=== PATIENT | male | born 1965 | race Caucasian/White ===

== ENCOUNTER 2021-08-01 18:21 | Emergency (ER) | payer MEDICAID ==
[~2021-08-01] VITALS: Ht 180.3 cm; Wt 65.9 kg
[2021-08-01 19:01] VITALS: BP 192/95
[2021-08-01] MEDS ORDERED: naproxen 500mg tablet PO ONE (20:55)
== END 2021-08-01 22:43 | disposition home or self-care (01) ==
LOC: ER 18:22
DX: S92.001A Unspecified fracture of right calcaneus, initial encounter for closed fracture (principal); I25.10 Atherosclerotic heart disease of native coronary artery without angina pectoris; I10 Essential (primary) hypertension; M19.90 Unspecified osteoarthritis, unspecified site; Z72.89 Other problems related to lifestyle; Z91.81 History of falling; Y30.XXXA Falling, jumping or pushed from a high place, undetermined intent, initial encounter; Y93.89 Activity, other specified; Y92.89 Other specified places as the place of occurrence of the external cause; Y99.8 Other external cause status
CPT/HCPCS: 29505; 29515; 73610; 73630; 73700; 99284

== ENCOUNTER 2021-12-01 15:14 | Emergency (ER) | payer MEDICAID ==
[~2021-12-01] VITALS: Ht 180.3 cm; Wt 65.0 kg
[2021-12-01 15:18] VITALS: BP 179/75
[2021-12-01] MEDS ORDERED: ketorolac trometh. 30mg/ml inj. IM ONE (16:30)
--- NOTE | 2021-12-01 18:17 | NUR ---
[facility] CALLED FOR PT.
--- NOTE | 2021-12-01 18:17 | NUR ---
PT PUT IN WALKING BOOT AND EDUCATED ON USE OF CRUTCHES.
== END 2021-12-01 18:18 | disposition home or self-care (01) ==
LOC: ER 15:15
DX: M79.671 Pain in right foot (principal); I11.9 Hypertensive heart disease without heart failure; Z87.81 Personal history of (healed) traumatic fracture; Z79.899 Other long term (current) drug therapy
CPT/HCPCS: 73610; 73630; 96372; 99284; J1885

== ENCOUNTER 2023-11-29 13:45 | Inpatient (IN) | payer MEDICAID ==
[~2023-11-29] VITALS: Ht 180.3 cm; Wt 68.8 kg
[2023-11-29 15:23] LABS: EOSINOPHILS # (AUTO) 0.3 X10'3 (0-0.9); LYMPHOCYTES # (AUTO) 1.9 X10'3 (1.1-4.8); MEAN PLATELET VOLUME 8.1 FL (7.4-10.4); MONOCYTES # (AUTO) 0.7 X10'3 (0-0.9); NEUTROPHILS % (AUTO) 60.2 % (42-75)
[2023-11-29 15:25] LABS: BASOPHILS % (AUTO) 0.5 % (0-1); EOSINOPHILS % (AUTO) 4.4 % (0-6); HEMATOCRIT 41.7 % (42.0-52.0); HEMOGLOBIN 14.2 g/dl (14.0-17.9); LYMPHOCYTES % (AUTO) 25.4 % (21-51); MEAN CORPUSCULAR HEMOGLOBIN 29.6 PG (27.0-31.0); MEAN CORPUSCULAR VOLUME 87.1 FL (78-98); MONOCYTES % (AUTO) 9.5 % (2-12); NEUTROPHILS # (AUTO) 4.6 X10'3 (1.8-7.7); PLATELET COUNT 253 X10'3 (140-440); RED BLOOD COUNT 4.78 X10'6 (4.70-6.10); RED CELL DISTRIBUTION WIDTH 17.9 % (11.5-14.5); WHITE BLOOD COUNT 7.7 X10'3 (4.5-11.0)
[2023-11-29] MEDS: predniSONE 20 mg tablet PO ONE (15:29)
[2023-11-29 15:36] LABS: ALANINE AMINOTRANSFERASE 15 U/L (12-78); ALBUMIN 3.2 G/DL (3.4-5.0); ALBUMIN/GLOBULIN RATIO 0.8 (1.1-1.5); ALKALINE PHOSPHATASE 91 IU/L (46-116); ANION GAP 5 (8-16); ASPARTATE AMINO TRANSFERASE 20 U/L (10-37); BILIRUBIN,TOTAL 0.3 MG/DL (0.1-1.0); BLOOD UREA NITROGEN 17 MG/DL (7-18); BUN/CREATININE RATIO 12.1 (10.0-20.0); CALCIUM 8.7 MG/DL (8.5-10.1); CHLORIDE 104 MMOL/L (99-107); CREATININE 1.41 MG/DL (0.60-1.10); GLUCOSE 77 MG/DL (70-104); POTASSIUM 3.5 MMOL/L (3.5-5.1); SODIUM 139 MMOL/L (135-145); TOTAL CARBON DIOXIDE 29.7 MMOL/L (24-32); eCRCL 53 ML/MIN; eGFR 52 ML/MIN
[2023-11-29] MEDS: heparin 10,000 units/1 ML INJ IV ONE ×2 (16:10→17:43)
[2023-11-29] MEDS ORDERED: magnesium sulf-water 4G/100mL 100 ML IV PRN (16:20)
[2023-11-29] MEDS ORDERED: potassium Cl 40MEQ/1/2NS 520ml 520 ML IV PRN (16:20)
[2023-11-29] MEDS ORDERED: magnesium sulf-water 2g/50mL 50 ML IV PRN (16:20)
[2023-11-29] MEDS ORDERED: ondansetron/PF 4mg/2ml inj IV PRN (16:20)
[2023-11-29] MEDS ORDERED: heparin 25,000 UNIT/250ml bag 250 ML IV PRN (16:20)
[2023-11-29] MEDS ORDERED: potassium Cl 20 mEq SR tablet PO PRN ×2 (16:20)
[2023-11-29] MEDS ORDERED: magnesium Cl slow-release 64mg tablet PO PRN (16:20)
[2023-11-29] MEDS ORDERED: acetaminophen 325mg tablet PO PRN ×2 (16:20)
[2023-11-29] MEDS: MESSAGE TO NURSING IV ONE (16:25)
[2023-11-29 16:46] LABS: EOSINOPHILS # (AUTO) 0.3 X10'3 (0-0.9); HEMOGLOBIN 13.8 g/dl (14.0-17.9); LYMPHOCYTES # (AUTO) 2.1 X10'3 (1.1-4.8); MONOCYTES # (AUTO) 0.7 X10'3 (0-0.9); NEUTROPHILS # (AUTO) 4.7 X10'3 (1.8-7.7); NEUTROPHILS % (AUTO) 60.2 % (42-75); RED CELL DISTRIBUTION WIDTH 17.9 % (11.5-14.5); WHITE BLOOD COUNT 7.8 X10'3 (4.5-11.0)
[2023-11-29 16:47] LABS: BASOPHILS % (AUTO) 0.3 % (0-1); EOSINOPHILS % (AUTO) 3.9 % (0-6); HEMATOCRIT 41.4 % (42.0-52.0); LYMPHOCYTES % (AUTO) 26.6 % (21-51); MEAN CORPUSCULAR HGB CONC 33.4 g/dL (33.0-36.5); MEAN CORPUSCULAR VOLUME 86.9 FL (78-98); PLATELET COUNT 259 X10'3 (140-440); RED BLOOD COUNT 4.77 X10'6 (4.70-6.10)
[2023-11-29 16:59] LABS: APTT 27 SECONDS (22-32); PROTHROMBIN TIME 10.7 SECONDS (9.0-12.0)
[2023-11-29] MEDS: normal saline 1000ml 1,000 ML IV SCH (17:39)
[2023-11-29] MEDS: heparin 25,000 UNIT/250ml bag 250 ML IV PRN (17:44)
[2023-11-29] MEDS: nicotine 14mg patch - 24hr TD SCH (19:34)
[2023-11-29] MEDS: triamcinolone acetonide 0.1% ointment 15gm TP SCH (20:17)
[2023-11-29 21:10] VITALS: BP 153/64; PULSE 56; RESP 16; TEMP 98.1; O2SAT 96
[2023-11-30] VITALS (17 sets, daily range): BP systolic 117–177; BP diastolic 51–117; PULSE 53–75; RESP 14–19; TEMP 96.8–98.2; O2SAT 97–99
[2023-11-30 00:36] LABS: URINE AMPHETAMINE SCREEN NEGATIVE (Neg); URINE BARBITUATE SCREEN NEGATIVE (Neg); URINE BENZODIAZEPINES SCREEN NEGATIVE (Neg); URINE CANNABINOID SCREEN NEGATIVE (Neg); URINE COCAINE SCREEN NEGATIVE (Neg); URINE METHADONE SCREEN NEGATIVE (Neg); URINE OPIATE SCREEN NEGATIVE (Neg); URINE PHENCYCLIDINE SCREEN NEGATIVE (Neg)
[2023-11-30] MEDS: heparin 25,000 UNIT/250ml bag 250 ML IV PRN (01:02)
[2023-11-30] MEDS: heparin 10,000 units/1 ML INJ IV PRN (01:03)
[2023-11-30] MEDS: MESSAGE TO NURSING IV ONE ×2 (01:33→07:16)
[2023-11-30 06:28] LABS: BASOPHILS % (AUTO) 0.3 % (0-1); HEMOGLOBIN 13.2 g/dl (14.0-17.9); MONOCYTES # (AUTO) 0.4 X10'3 (0-0.9); NEUTROPHILS % (AUTO) 61.2 % (42-75)
[2023-11-30 06:30] LABS: EOSINOPHILS % (AUTO) 0.7 % (0-6); HEMATOCRIT 40.2 % (42.0-52.0); LYMPHOCYTES % (AUTO) 30.8 % (21-51); MEAN CORPUSCULAR HEMOGLOBIN 28.3 PG (27.0-31.0); MEAN CORPUSCULAR HGB CONC 32.8 g/dL (33.0-36.5); MEAN CORPUSCULAR VOLUME 86.3 FL (78-98); MEAN PLATELET VOLUME 8.3 FL (7.4-10.4); NEUTROPHILS # (AUTO) 3.9 X10'3 (1.8-7.7); PLATELET COUNT 232 X10'3 (140-440); RED BLOOD COUNT 4.66 X10'6 (4.70-6.10); RED CELL DISTRIBUTION WIDTH 17.4 % (11.5-14.5); WHITE BLOOD COUNT 6.4 X10'3 (4.5-11.0)
[2023-11-30 06:39] LABS: ALANINE AMINOTRANSFERASE 17 U/L (12-78); ALBUMIN 2.6 G/DL (3.4-5.0); ALBUMIN/GLOBULIN RATIO 0.8 (1.1-1.5); ALKALINE PHOSPHATASE 78 IU/L (46-116); ANION GAP 8 (8-16); ASPARTATE AMINO TRANSFERASE 10 U/L (10-37); BILIRUBIN,TOTAL 0.3 MG/DL (0.1-1.0); BLOOD UREA NITROGEN 18 MG/DL (7-18); BUN/CREATININE RATIO 19.6 (10.0-20.0); CALCIUM 8.3 MG/DL (8.5-10.1); CHLORIDE 105 MMOL/L (99-107); CREATININE 0.92 MG/DL (0.60-1.10); GLUCOSE 94 MG/DL (70-104); POTASSIUM 3.8 MMOL/L (3.5-5.1); SODIUM 137 MMOL/L (135-145); TOTAL CARBON DIOXIDE 24.2 MMOL/L (24-32); eCRCL 80 ML/MIN; eGFR 84 ML/MIN
[2023-11-30] MEDS ORDERED: pneumococcal 23-VAL P-sac vacc 25 mcg/0.5ml vial IMVAC ONE (10:00)
[2023-11-30] MEDS: amLODIPine 5mg tablet PO ONE (11:00)
[2023-11-30] MEDS: lisinopril 10 MG tablet PO ONE (12:07)
[2023-11-30] MEDS ORDERED: iohexol 350MG/ML 100ml bottle IV ONE (16:41)
[2023-11-30] MEDS ORDERED: heparin 1,000unit/ml 10ml vial 10 ML ONE (16:41)
[2023-11-30] MEDS ORDERED: LIDOcaine 1% (10mg/ml) 2ml vial ONE (16:41)
[2023-11-30] MEDS ORDERED: verapamil 2.5 mg/ml inj IV ONE (16:41)
[2023-11-30] MEDS ORDERED: nitroGLYCERIN 500mcg/5mL D5W 5 ML IV ONE (16:42)
[2023-11-30] MEDS ORDERED: fentaNYL/PF 50MCG/1 ML 2ML syringe ONE (17:22)
[2023-11-30] MEDS ORDERED: midazolam 1 mg/ML 2ml injection ONE (17:22)
[2023-11-30] MEDS ORDERED: iohexol 350 MG/ML 50ML vial IV ONE (17:36)
[2023-11-30] MEDS ORDERED: ondansetron/PF 4mg/2ml inj IV PRN (18:25)
[2023-11-30] MEDS ORDERED: proCHLORperazine 10 MG/2 ml inj IV PRN (18:25)
[2023-11-30] MEDS ORDERED: HYDROcodone/acetaminophen 10/325mg tab PO PRN (18:25)
[2023-11-30] MEDS: aspirin 81mg tab.chew PO ONE (19:55)
[2023-11-30] MEDS: HYDROcodone/acetaminophen 5mg/325mg tablet PO PRN (19:56)
[2023-12-01] VITALS (13 sets, daily range): BP systolic 136–185; BP diastolic 49–154; PULSE 51–62; RESP 13–22; TEMP 97.2–98.7; O2SAT 96–99
[2023-12-01] MEDS: hydrALAZINE 20mg/ml inj. IV SCH (02:19)
[2023-12-01 06:37] LABS: BASOPHILS % (AUTO) 0.6 % (0-1); EOSINOPHILS # (AUTO) 0.2 X10'3 (0-0.9); EOSINOPHILS % (AUTO) 3.2 % (0-6); HEMOGLOBIN 13.2 g/dl (14.0-17.9); LYMPHOCYTES # (AUTO) 2.2 X10'3 (1.1-4.8); LYMPHOCYTES % (AUTO) 29.7 % (21-51); MEAN CORPUSCULAR HEMOGLOBIN 28.3 PG (27.0-31.0); MEAN CORPUSCULAR HGB CONC 32.9 g/dL (33.0-36.5); MEAN PLATELET VOLUME 8.6 FL (7.4-10.4); MONOCYTES # (AUTO) 0.6 X10'3 (0-0.9); MONOCYTES % (AUTO) 7.9 % (2-12); NEUTROPHILS # (AUTO) 4.3 X10'3 (1.8-7.7); NEUTROPHILS % (AUTO) 58.6 % (42-75); PLATELET COUNT 220 X10'3 (140-440); RED BLOOD COUNT 4.65 X10'6 (4.70-6.10); RED CELL DISTRIBUTION WIDTH 17.6 % (11.5-14.5); WHITE BLOOD COUNT 7.4 X10'3 (4.5-11.0)
[2023-12-01 06:47] LABS: ALANINE AMINOTRANSFERASE 14 U/L (12-78); ALBUMIN 2.8 G/DL (3.4-5.0); ALBUMIN/GLOBULIN RATIO 0.8 (1.1-1.5); ALKALINE PHOSPHATASE 74 IU/L (46-116); ANION GAP 7 (8-16); ASPARTATE AMINO TRANSFERASE 19 U/L (10-37); BILIRUBIN,TOTAL 0.4 MG/DL (0.1-1.0); BLOOD UREA NITROGEN 18 MG/DL (7-18); BUN/CREATININE RATIO 19.6 (10.0-20.0); CALCIUM 8.5 MG/DL (8.5-10.1); CHLORIDE 104 MMOL/L (99-107); CREATININE 0.92 MG/DL (0.60-1.10); GLUCOSE 75 MG/DL (70-104); SODIUM 136 MMOL/L (135-145); TOTAL CARBON DIOXIDE 25.3 MMOL/L (24-32); TOTAL PROTEIN 6.5 G/DL (6.4-8.2); eCRCL 80 ML/MIN; eGFR 84 ML/MIN
[2023-12-01] MEDS: lisinopril 10 MG tablet PO SCH (12:13)
[2023-12-01] MEDS: metoprolol succinate 25mg (24-HOUR) SR. Tablet PO SCH (13:16)
[2023-12-01] MEDS: pneumococcal 23-VAL P-sac vacc 25 mcg/0.5ml vial IMVAC ONE (15:20)
[2023-12-01] MEDS ORDERED: ACET-2778 PO (18:10)
[2023-12-01] MEDS ORDERED: LISI10TA27 PO (18:10)
[2023-12-01] MEDS ORDERED: METO-384 PO (18:10)
[2023-12-01] MEDS ORDERED: HYDR25TA5 PO (18:10)
[2023-12-01] MEDS ORDERED: MELO-100 PO (18:10)
[2023-12-01] MEDS ORDERED: AMIT10TA6 PO (18:10)
[2023-12-01] MEDS: enoxaparin 40mg/0.4ml syringe SUBCUT SCH (21:06)
[2023-12-01] MEDS: OXAZEpam 15mg capsule PO PRN (21:17)
[2023-12-02] VITALS (12 sets, daily range): BP systolic 155–172; BP diastolic 59–69; PULSE 47–54; RESP 15–23; TEMP 97.3–97.6; O2SAT 95–98
[2023-12-02 07:10] LABS: ALANINE AMINOTRANSFERASE 13 U/L (12-78); ALBUMIN 2.7 G/DL (3.4-5.0); ALBUMIN/GLOBULIN RATIO 0.8 (1.1-1.5); ALKALINE PHOSPHATASE 72 IU/L (46-116); ANION GAP 5 (8-16); ASPARTATE AMINO TRANSFERASE 18 U/L (10-37); BILIRUBIN,TOTAL 0.4 MG/DL (0.1-1.0); BLOOD UREA NITROGEN 19 MG/DL (7-18); BUN/CREATININE RATIO 18.3 (10.0-20.0); CALCIUM 8.5 MG/DL (8.5-10.1); CHLORIDE 107 MMOL/L (99-107); CREATININE 1.04 MG/DL (0.60-1.10); GLUCOSE 74 MG/DL (70-104); POTASSIUM 4.2 MMOL/L (3.5-5.1); SODIUM 138 MMOL/L (135-145); TOTAL CARBON DIOXIDE 25.8 MMOL/L (24-32); TOTAL PROTEIN 6.2 G/DL (6.4-8.2); eCRCL 71 ML/MIN; eGFR 73 ML/MIN
[2023-12-02 07:22] LABS: EOSINOPHILS # (AUTO) 0.3 X10'3 (0-0.9); HEMOGLOBIN 13.2 g/dl (14.0-17.9); LYMPHOCYTES # (AUTO) 2.1 X10'3 (1.1-4.8); NEUTROPHILS # (AUTO) 4.4 X10'3 (1.8-7.7); RED CELL DISTRIBUTION WIDTH 17.8 % (11.5-14.5); WHITE BLOOD COUNT 7.5 X10'3 (4.5-11.0)
[2023-12-02 07:24] LABS: BASOPHILS % (AUTO) 0.6 % (0-1); EOSINOPHILS % (AUTO) 3.6 % (0-6); LYMPHOCYTES % (AUTO) 28.8 % (21-51); MEAN CORPUSCULAR HEMOGLOBIN 28.6 PG (27.0-31.0); MEAN CORPUSCULAR HGB CONC 32.9 g/dL (33.0-36.5); MEAN CORPUSCULAR VOLUME 86.9 FL (78-98); MEAN PLATELET VOLUME 8.6 FL (7.4-10.4); MONOCYTES # (AUTO) 0.6 X10'3 (0-0.9); MONOCYTES % (AUTO) 8.6 % (2-12); NEUTROPHILS % (AUTO) 58.4 % (42-75); PLATELET COUNT 217 X10'3 (140-440)
[2023-12-02 07:32] LABS: ANISOCYTOSIS 1+; LARGE PLATELETS FEW; PLATELET ESTIMATE NORMAL
[2023-12-02] MEDS: hydrALAZINE 20mg/ml inj. IV PRN (11:09)
[2023-12-02] MEDS: lisinopril 10 MG tablet PO ONE (12:21)
[2023-12-02] MEDS: MESSAGE TO PHARMACY IJ ONE (14:21)
[2023-12-02] MEDS: MESSAGE TO NURSING PO ONE ×4 (14:21→14:22)
[2023-12-02 14:24] LABS: APTT 30 SECONDS (22-32); PROTHROMBIN TIME 10.8 SECONDS (9.0-12.0)
[2023-12-02 16:03] LABS: ABG BASE EXCESS 1.4 mmol/L (-2.0-3.0); ABG HCO3 23.8 mmol/L (21.0-28.0); ABG OXYGEN SATURATION 97.2 % (94.0-98.0); ABG PCO2 (T) 31.2 mmHg (35.0-48.0); ABG PO2 (T) 83.1 mmHg (83.0-108.0); ALLEN'S TEST POSITIVE; FCOHb 0.9 % (0.5-1.5); FHHb 2.8 % (0.0-5.0); FMetHb 0.3 % (0.0-1.5); TOTAL HEMOGLOBIN 14.1 G/dl (13.5-17.5)
[2023-12-03] VITALS (9 sets, daily range): BP systolic 116–166; BP diastolic 47–65; PULSE 49–54; RESP 14–19; TEMP 97–98.5; O2SAT 94–98
[2023-12-03 04:42] LABS: BILIRUBIN,URINE NEGATIVE (Neg); CLARITY,URINE CLEAR (Clear); COLOR,URINE STRAW (Yellow); GLUCOSE, URINE NEGATIVE (Neg); KETONES,URINE NEGATIVE (Neg); LEUKOCYTE ESTERASE ,URINE NEGATIVE (Neg); NITRITES, URINE NEGATIVE (Neg); OCCULT BLOOD,URINE NEGATIVE (Neg); PH,URINE 6.5 (4.8-8.0); PROTEIN,URINE NEGATIVE (Neg); UROBILINOGEN,URINE 0.2 E.U/dL (0.2-1.0)
[2023-12-03 04:46] LABS: UA COLLECTION TYPE CLN CATCH MIDSTREAM
[2023-12-03 06:37] LABS: BASOPHILS % (AUTO) 0.6 % (0-1); LYMPHOCYTES # (AUTO) 2.2 X10'3 (1.1-4.8); MONOCYTES # (AUTO) 0.8 X10'3 (0-0.9); PLATELET COUNT 209 X10'3 (140-440); RED BLOOD COUNT 4.44 X10'6 (4.70-6.10)
[2023-12-03 06:40] LABS: EOSINOPHILS # (AUTO) 0.2 X10'3 (0-0.9); EOSINOPHILS % (AUTO) 3.4 % (0-6); HEMATOCRIT 38.5 % (42.0-52.0); HEMOGLOBIN 12.8 g/dl (14.0-17.9); LYMPHOCYTES % (AUTO) 31.9 % (21-51); MEAN CORPUSCULAR HEMOGLOBIN 28.9 PG (27.0-31.0); MEAN CORPUSCULAR HGB CONC 33.3 g/dL (33.0-36.5); MEAN CORPUSCULAR VOLUME 86.8 FL (78-98); MEAN PLATELET VOLUME 8.6 FL (7.4-10.4); MONOCYTES % (AUTO) 11.5 % (2-12); NEUTROPHILS # (AUTO) 3.7 X10'3 (1.8-7.7); NEUTROPHILS % (AUTO) 52.6 % (42-75); RED CELL DISTRIBUTION WIDTH 17.2 % (11.5-14.5)
[2023-12-03 06:55] LABS: ALANINE AMINOTRANSFERASE 21 U/L (12-78); ALBUMIN 2.8 G/DL (3.4-5.0); ALBUMIN/GLOBULIN RATIO 0.8 (1.1-1.5); ALKALINE PHOSPHATASE 73 IU/L (46-116); ANION GAP 6 (8-16); ASPARTATE AMINO TRANSFERASE 26 U/L (10-37); BILIRUBIN,TOTAL 0.3 MG/DL (0.1-1.0); BLOOD UREA NITROGEN 19 MG/DL (7-18); CALCIUM 8.7 MG/DL (8.5-10.1); CHLORIDE 107 MMOL/L (99-107); GLUCOSE 79 MG/DL (70-104); POTASSIUM 4.2 MMOL/L (3.5-5.1); SODIUM 139 MMOL/L (135-145); TOTAL CARBON DIOXIDE 25.9 MMOL/L (24-32); TOTAL PROTEIN 6.4 G/DL (6.4-8.2); eCRCL 74 ML/MIN; eGFR 77 ML/MIN
[2023-12-03 07:45] LABS: ANISOCYTOSIS 1+; LARGE PLATELETS MODERATE; PLATELET ESTIMATE NORMAL
[2023-12-03] MEDS: gabapentin 400mg capsule PO ONE (08:56)
[2023-12-03] MEDS: amLODIPine 5mg tablet PO SCH (08:57)
[2023-12-03] MEDS: lisinopril 10 MG tablet PO SCH (08:57)
[2023-12-03] MEDS: MESSAGE TO NURSING PO ONE (10:07)
[2023-12-03] MEDS: ringers solution, lacted 1,000 ML IV ONE (17:30)
[2023-12-03] MEDS: mupirocin 2% nasal ointment 1gm UD NS SCH (20:22)
[2023-12-04] VITALS (26 sets, daily range): BP systolic 96–164; BP diastolic 47–97; PULSE 46–105; RESP 11–32; TEMP 97.4–97.7; O2SAT 93–99
[2023-12-04 03:37] LABS: EOSINOPHILS # (AUTO) 0.3 X10'3 (0-0.9); HEMATOCRIT 38.6 % (42.0-52.0); MEAN CORPUSCULAR VOLUME 86.9 FL (78-98); MONOCYTES # (AUTO) 0.7 X10'3 (0-0.9)
[2023-12-04 03:39] LABS: BASOPHILS # (AUTO) 0.1 X10'3 (0-0.2); BASOPHILS % (AUTO) 0.9 % (0-1); EOSINOPHILS % (AUTO) 5.2 % (0-6); HEMOGLOBIN 12.9 g/dl (14.0-17.9); LYMPHOCYTES # (AUTO) 2.1 X10'3 (1.1-4.8); LYMPHOCYTES % (AUTO) 33.5 % (21-51); MEAN CORPUSCULAR HGB CONC 33.3 g/dL (33.0-36.5); MEAN PLATELET VOLUME 8.5 FL (7.4-10.4); MONOCYTES % (AUTO) 10.9 % (2-12); NEUTROPHILS % (AUTO) 49.5 % (42-75); PLATELET COUNT 209 X10'3 (140-440); RED BLOOD COUNT 4.44 X10'6 (4.70-6.10); RED CELL DISTRIBUTION WIDTH 17.6 % (11.5-14.5); WHITE BLOOD COUNT 6.1 X10'3 (4.5-11.0)
[2023-12-04 03:49] LABS: PROTHROMBIN TIME 10.5 SECONDS (9.0-12.0)
[2023-12-04 03:51] LABS: ALANINE AMINOTRANSFERASE 24 U/L (12-78); ALBUMIN 2.8 G/DL (3.4-5.0); ALBUMIN/GLOBULIN RATIO 0.8 (1.1-1.5); ALKALINE PHOSPHATASE 72 IU/L (46-116); ANION GAP 4 (8-16); ASPARTATE AMINO TRANSFERASE 20 U/L (10-37); BILIRUBIN,TOTAL 0.2 MG/DL (0.1-1.0); BLOOD UREA NITROGEN 24 MG/DL (7-18); BUN/CREATININE RATIO 25.8 (10.0-20.0); CALCIUM 8.5 MG/DL (8.5-10.1); CHLORIDE 106 MMOL/L (99-107); CREATININE 0.93 MG/DL (0.60-1.10); GLUCOSE 81 MG/DL (70-104); POTASSIUM 4.4 MMOL/L (3.5-5.1); SODIUM 137 MMOL/L (135-145); TOTAL CARBON DIOXIDE 26.6 MMOL/L (24-32); TOTAL PROTEIN 6.3 G/DL (6.4-8.2); eCRCL 79 ML/MIN; eGFR 83 ML/MIN
[2023-12-04] MEDS: vancomycin/NS 1 GM ADD-VANTAGE 250 ML IV ONE (05:30)
[2023-12-04] MEDS ORDERED: Insulin Reg/NS 100units/100mL 100 ML IV SCH (05:30)
[2023-12-04] MEDS: cefazolin 2gm/D5W 100mL 100 ML IV ONE (05:30)
[2023-12-04] MEDS ORDERED: dextrose 50%-water 50ml dispensing syringe IV PRN ×2 (05:30→11:40)
[2023-12-04] MEDS ORDERED: insulin glargine (Lantus) pen - multi-dose SQ PRN ×2 (05:30→11:40)
[2023-12-04] MEDS: midazolam 1 mg/ML 2ml injection IV ONE (05:30)
[2023-12-04] MEDS: epiNEPHrine 1 mg/ml inj ONE (07:18)
[2023-12-04] MEDS: BUPIVAcaine 2.5mg/ml inj 50ml vial (contains preservative) ONE (07:19)
[2023-12-04] MEDS: ceFAZolin 1000mg inj ONE (07:19)
[2023-12-04] MEDS: LIDOcaine 1% 30ml preserv. free vial ONE (07:20)
[2023-12-04] MEDS: heparin 10,000 units/1 ML INJ ONE (07:21)
[2023-12-04] MEDS: vancomycin 1,000mg inj ONE (07:21)
[2023-12-04] MEDS: famotidine 20mg tablet PO ONE (07:28)
[2023-12-04] MEDS: metoprolol succinate 25mg (24-HOUR) SR. Tablet PO SCH (07:33)
[2023-12-04] MEDS: LORazepam 2 mg/ml vial ONE (07:34)
[2023-12-04] MEDS: BUPIVAcaine 0.5% inj/PF 30 ML ONE (07:46)
[2023-12-04] MEDS ORDERED: albumin (human) 25% 100 ML IV solution IV ONE (07:47)
[2023-12-04] MEDS ORDERED: isoflurane 100ml inhalation liquid IH ONE (07:47)
[2023-12-04] MEDS ORDERED: SUfentanil 50mcg/ml 1ml amp IV ONE (08:04)
[2023-12-04] MEDS ORDERED: midazolam 1 mg/ML 2ml injection ONE (08:04)
[2023-12-04] MEDS ORDERED: propofol inj 20 ML IV ONE (08:34)
[2023-12-04] MEDS ORDERED: rocuronium 10mg/ml inj IV ONE ×3 (08:34→09:02)
[2023-12-04] MEDS ORDERED: LIDOcaine 2% (20mg/ml) 5ml vial ONE (08:34)
[2023-12-04 08:46] LABS: ABG BASE EXCESS -1.7 mmol/L (-2.0-3.0); ABG HCO3 23.3 mmol/L (21.0-28.0); ABG OXYGEN SATURATION 99.2 % (94.0-98.0); ABG PCO2 40.3 mmHg (35.0-48.0); ABG PH 7.379 (7.350-7.450); ABG PO2 184.1 mmHg (83.0-108.0); CL (ABG) 104 mmol/L (98-107); FCOHb 0.3 % (0.5-1.5); FHHb 0.8 % (0.0-5.0); FMetHb 0.1 % (0.0-1.5); FO2Hb 98.8 % (94.0-98.0); GLUCOSE (ABG) 94 mg/dl (65-95); IONIZED CA (ABG) 1.18 mmol/L (1.15-1.33); K (ABG) 4.1 mmol/L (3.40-4.50); TOTAL HEMOGLOBIN 12.3 G/dl (13.5-17.5)
[2023-12-04 09:30] LABS: ABG BASE EXCESS -1.8 mmol/L (-2.0-3.0); ABG HCO3 22.8 mmol/L (21.0-28.0); ABG OXYGEN SATURATION 99.3 % (94.0-98.0); ABG PH 7.396 (7.350-7.450); ABG PO2 255.7 mmHg (83.0-108.0); CL (ABG) 101 mmol/L (98-107); FCOHb 0.2 % (0.5-1.5); FHHb 0.7 % (0.0-5.0); FMetHb 0.3 % (0.0-1.5); FO2Hb 98.8 % (94.0-98.0); GLUCOSE (ABG) 104 mg/dl (65-95); IONIZED CA (ABG) 1.05 mmol/L (1.15-1.33); K (ABG) 4.1 mmol/L (3.40-4.50); TOTAL HEMOGLOBIN 9.6 G/dl (13.5-17.5)
[2023-12-04] MEDS: epiNEPHrine 1 mg/ml inj SQ ONE (09:38)
[2023-12-04 10:10] LABS: ABG BASE EXCESS VENOUS -0.7 mmol/L (-2.0-3.0); ABG HCO3 VENOUS 24.2 mmol/L (22.0-29.0); ABG OXYGEN SATURATION VENOUS 79.3 % (60.0-85.0); ABG PH (VENOUS) 7.389 (7.320-7.430); ABG PO2 VENOUS 44.2 mmHg (23.0-48.0); CL (ABG) 103 mmol/L (98-107); FCOHb VENOUS 0.3 % (0.5-1.5); FHHb VENOUS 20.6 %; FMetHb VENOUS 0.3 % (0.5-1.5); FO2Hb VENOUS 78.8 % (0-80.0); GLUCOSE (ABG) 162 mg/dl (65-95); IONIZED CA (ABG) 1.08 mmol/L (1.15-1.33); K (ABG) 5.9 mmol/L (3.40-4.50); TOTAL HEMOGLOBIN 9.3 G/dl (13.5-17.5)
[2023-12-04] MEDS ORDERED: albuterol 2.5 MG/3 ML nebule NEB PRN (10:25)
[2023-12-04 10:43] LABS: ABG BASE EXCESS -1.5 mmol/L (-2.0-3.0); ABG HCO3 23.6 mmol/L (21.0-28.0); ABG OXYGEN SATURATION 99.3 % (94.0-98.0); ABG PCO2 41.4 mmHg (35.0-48.0); ABG PH 7.374 (7.350-7.450); CL (ABG) 102 mmol/L (98-107); FCOHb 0.3 % (0.5-1.5); FHHb 0.7 % (0.0-5.0); FMetHb 0.3 % (0.0-1.5); FO2Hb 98.7 % (94.0-98.0); GLUCOSE (ABG) 166 mg/dl (65-95); TOTAL HEMOGLOBIN 8.2 G/dl (13.5-17.5)
[2023-12-04 10:52] LABS: ABG BASE EXCESS 2.4 mmol/L (-2.0-3.0); ABG HCO3 26.6 mmol/L (21.0-28.0); ABG OXYGEN SATURATION 99.5 % (94.0-98.0); ABG PCO2 39.4 mmHg (35.0-48.0); ABG PH 7.448 (7.350-7.450); CL (ABG) 100 mmol/L (98-107); FCOHb 0.3 % (0.5-1.5); FHHb 0.5 % (0.0-5.0); FMetHb 0.1 % (0.0-1.5); FO2Hb 99.1 % (94.0-98.0); GLUCOSE (ABG) 159 mg/dl (65-95); IONIZED CA (ABG) 1.33 mmol/L (1.15-1.33); K (ABG) 5.8 mmol/L (3.40-4.50); TOTAL HEMOGLOBIN 7.7 G/dl (13.5-17.5)
[2023-12-04 11:16] LABS: ABG BASE EXCESS 0.3 mmol/L (-2.0-3.0); ABG HCO3 25.4 mmol/L (21.0-28.0); ABG OXYGEN SATURATION 99.4 % (94.0-98.0); ABG PCO2 43.1 mmHg (35.0-48.0); ABG PH 7.388 (7.350-7.450); CL (ABG) 102 mmol/L (98-107); FCOHb 0.3 % (0.5-1.5); FHHb 0.6 % (0.0-5.0); FMetHb 0.1 % (0.0-1.5); GLUCOSE (ABG) 152 mg/dl (65-95); K (ABG) 5.9 mmol/L (3.40-4.50); TOTAL HEMOGLOBIN 8.9 G/dl (13.5-17.5)
[2023-12-04 11:19] LABS: ACTIVATED CLOTTING TIME 124 SEC (101-148)
[2023-12-04] MEDS ORDERED: morphine 4 MG/ML inj SYRINge ONE (11:22)
[2023-12-04] MEDS ORDERED: potassium CL 10mEq/100ml bag 100 ML IV PRN (11:40)
[2023-12-04] MEDS ORDERED: acetaminophen 325mg tablet PO PRN (11:40)
[2023-12-04] MEDS ORDERED: HYDROcodone/acetaminophen 10/325mg tab PO PRN (11:40)
[2023-12-04] MEDS ORDERED: nitroGLYCERIN-Tridil 50MG/D5W 250 ML IV PRN (11:40)
[2023-12-04] MEDS ORDERED: niCARDipine-NS 40mg/200ml IVPB 200 ML IV PRN (11:40)
[2023-12-04] MEDS ORDERED: potassium Cl 40MEQ/1/2NS 520ml 520 ML IV PRN (11:40)
[2023-12-04] MEDS ORDERED: morphine 2 MG/ML inj. syringe IV PRN (11:40)
[2023-12-04] MEDS ORDERED: potassium Cl 40MEQ/270ML bag 250 ML IV PRN (11:40)
[2023-12-04] MEDS ORDERED: metoclopramide 5 mg/ml inj IV PRN (11:40)
[2023-12-04] MEDS ORDERED: ondansetron/PF 4mg/2ml inj IV PRN (11:40)
[2023-12-04] MEDS ORDERED: potassium Cl 20 mEq SR tablet PO PRN (11:40)
[2023-12-04] MEDS ORDERED: sodium phosphate inj. 30 MMOL in dextrose 5%-water 250 ML IV PRN (11:40)
[2023-12-04] MEDS ORDERED: bisacodyl 10mg suppository rectal RC PRN (11:40)
[2023-12-04] MEDS: Insulin Reg/NS 100units/100mL 100 ML IV SCH (11:40)
[2023-12-04] MEDS ORDERED: mineral oil 133ml enema RC PRN (11:40)
[2023-12-04] MEDS ORDERED: sodium phosphate inj. 15 MMOL in dextrose 5%-water 250 ML IV PRN (11:40)
[2023-12-04] MEDS ORDERED: NORepinephrine 8mg/ 250ml NS 250 ML IV PRN (11:45)
[2023-12-04 12:09] LABS: ABG BASE EXCESS -1.3 mmol/L (-2.0-3.0); ABG HCO3 24.9 mmol/L (21.0-28.0); ABG OXYGEN SATURATION 99.4 % (94.0-98.0); ABG PCO2 (T) 46.7 mmHg (35.0-48.0); ABG PH (T) 7.341 (7.350-7.450); ABG PO2 (T) 259.8 mmHg (83.0-108.0); FCOHb 0.2 % (0.5-1.5); FHHb 0.6 % (0.0-5.0); FMetHb 0.5 % (0.0-1.5); FO2Hb 98.7 % (94.0-98.0); MODE COOL AEROSOL; PATIENT TEMPERATURE 36.3; PEEP 5 cm H2O; RESPIRATORY RATE 12 b/min; TIDAL VOLUME 500 mL; TOTAL HEMOGLOBIN 11.8 G/dl (13.5-17.5)
[2023-12-04] MEDS: albumin (Human) 5% 250ml 250 ML IV PRN (12:12)
[2023-12-04 12:25] LABS: BASOPHILS % (AUTO) 0.2 % (0-1); EOSINOPHILS # (AUTO) 0.2 X10'3 (0-0.9); HEMATOCRIT 32.7 % (42.0-52.0); HEMOGLOBIN 10.7 g/dl (14.0-17.9); LYMPHOCYTES # (AUTO) 1.5 X10'3 (1.1-4.8); LYMPHOCYTES % (AUTO) 12.1 % (21-51); MEAN CORPUSCULAR HEMOGLOBIN 28.6 PG (27.0-31.0); MEAN CORPUSCULAR HGB CONC 32.8 g/dL (33.0-36.5); MEAN CORPUSCULAR VOLUME 87.1 FL (78-98); MEAN PLATELET VOLUME 8.3 FL (7.4-10.4); MONOCYTES # (AUTO) 0.6 X10'3 (0-0.9); MONOCYTES % (AUTO) 4.7 % (2-12); NEUTROPHILS # (AUTO) 9.9 X10'3 (1.8-7.7); PLATELET COUNT 127 X10'3 (140-440); RED BLOOD COUNT 3.76 X10'6 (4.70-6.10); RED CELL DISTRIBUTION WIDTH 17.2 % (11.5-14.5); WHITE BLOOD COUNT 12.2 X10'3 (4.5-11.0)
[2023-12-04 12:39] LABS: APTT 28 SECONDS (22-32); INR 1.1 INR
[2023-12-04 12:45] LABS: ALANINE AMINOTRANSFERASE 19 U/L (12-78); ALBUMIN 2.5 G/DL (3.4-5.0); ALKALINE PHOSPHATASE 51 IU/L (46-116); ANION GAP 7 (8-16); ASPARTATE AMINO TRANSFERASE 35 U/L (10-37); BILIRUBIN,TOTAL 0.4 MG/DL (0.1-1.0); BLOOD UREA NITROGEN 22 MG/DL (7-18); CALCIUM 8.2 MG/DL (8.5-10.1); CHLORIDE 106 MMOL/L (99-107); CREATININE 1.16 MG/DL (0.60-1.10); GLUCOSE 139 MG/DL (70-104); PHOSPHORUS 3.2 MG/DL (2.3-4.5); POTASSIUM 5.2 MMOL/L (3.5-5.1); SODIUM 139 MMOL/L (135-145); TOTAL CARBON DIOXIDE 25.8 MMOL/L (24-32); TOTAL PROTEIN 5.1 G/DL (6.4-8.2); eCRCL 63 ML/MIN; eGFR 65 ML/MIN
[2023-12-04] MEDS: sodium chloride 0.45% 1,000 ML IV SCH (12:56)
[2023-12-04 12:57] LABS: MAGNESIUM 4.3 MG/DL (1.5-2.4)
[2023-12-04] MEDS: gabapentin 300mg capsule PO SCH (14:11)
[2023-12-04] MEDS: morphine 4 MG/ML inj SYRINge IV PRN (15:49)
[2023-12-04] MEDS: ceFAZolin/D5W- 1GM premix 50 ML IV SCH (16:10)
[2023-12-04] MEDS ORDERED: MED LIST UNOBTAINABL (17:38)
[2023-12-04 18:05] LABS: BASOPHILS % (AUTO) 0.1 % (0-1); EOSINOPHILS % (AUTO) 0.1 % (0-6); HEMATOCRIT 29.8 % (42.0-52.0); HEMOGLOBIN 9.7 g/dl (14.0-17.9); LYMPHOCYTES # (AUTO) 0.4 X10'3 (1.1-4.8); LYMPHOCYTES % (AUTO) 3.5 % (21-51); MEAN CORPUSCULAR HEMOGLOBIN 28.3 PG (27.0-31.0); MEAN CORPUSCULAR HGB CONC 32.6 g/dL (33.0-36.5); MEAN CORPUSCULAR VOLUME 86.8 FL (78-98); MEAN PLATELET VOLUME 8.2 FL (7.4-10.4); MONOCYTES # (AUTO) 0.9 X10'3 (0-0.9); MONOCYTES % (AUTO) 7.2 % (2-12); NEUTROPHILS # (AUTO) 11.3 X10'3 (1.8-7.7); NEUTROPHILS % (AUTO) 89.1 % (42-75); PLATELET COUNT 128 X10'3 (140-440); RED BLOOD COUNT 3.44 X10'6 (4.70-6.10); RED CELL DISTRIBUTION WIDTH 17.1 % (11.5-14.5); WHITE BLOOD COUNT 12.7 X10'3 (4.5-11.0)
[2023-12-04 18:18] LABS: ALBUMIN 3.8 G/DL (3.4-5.0); ANION GAP 9 (8-16); BLOOD UREA NITROGEN 24 MG/DL (7-18); BUN/CREATININE RATIO 17.5 (10.0-20.0); CALCIUM 8.2 MG/DL (8.5-10.1); CHLORIDE 108 MMOL/L (99-107); CREATININE 1.37 MG/DL (0.60-1.10); GLUCOSE 112 MG/DL (70-104); MAGNESIUM 3.1 MG/DL (1.5-2.4); PHOSPHORUS 3.3 MG/DL (2.3-4.5); POTASSIUM 4.2 MMOL/L (3.5-5.1); SODIUM 142 MMOL/L (135-145); TOTAL CARBON DIOXIDE 25.2 MMOL/L (24-32); eCRCL 53 ML/MIN; eGFR 53 ML/MIN
[2023-12-04] MEDS: potassium Cl 20mEq/100mL bag 100 ML IV PRN (19:01)
[2023-12-04] MEDS: HYDROcodone/acetaminophen 10/325mg tab PO PRN (19:05)
[2023-12-04] MEDS: mupirocin 2% nasal ointment 1gm UD NS SCH (20:00)
[2023-12-04] MEDS: sennosides/docusate sodium tablet PO SCH (21:07)
[2023-12-04] MEDS: vancomycin/NS 1 GM ADD-VANTAGE 250 ML IV SCH (21:07)
[2023-12-04] MEDS: atorvastatin 10mg tablet PO SCH (21:07)
[2023-12-04] MEDS: acetaminophen 325mg tablet PO PRN (21:23)
[2023-12-05] VITALS (24 sets, daily range): BP systolic 84–156; BP diastolic 49–84; PULSE 58–83; RESP 12–21; O2SAT 91–99
[2023-12-05 02:34] LABS: BASOPHILS % (AUTO) 0 % (0-1); EOSINOPHILS % (AUTO) 0 % (0-6); HEMATOCRIT 27.9 % (42.0-52.0); HEMOGLOBIN 9.1 g/dl (14.0-17.9); LYMPHOCYTES # (AUTO) 0.4 X10'3 (1.1-4.8); LYMPHOCYTES % (AUTO) 3.9 % (21-51); MEAN CORPUSCULAR HEMOGLOBIN 28.3 PG (27.0-31.0); MEAN CORPUSCULAR HGB CONC 32.6 g/dL (33.0-36.5); MEAN CORPUSCULAR VOLUME 86.8 FL (78-98); MEAN PLATELET VOLUME 8.9 FL (7.4-10.4); MONOCYTES # (AUTO) 0.5 X10'3 (0-0.9); MONOCYTES % (AUTO) 4.9 % (2-12); NEUTROPHILS # (AUTO) 10.2 X10'3 (1.8-7.7); NEUTROPHILS % (AUTO) 91.2 % (42-75); PLATELET COUNT 117 X10'3 (140-440); RED BLOOD COUNT 3.21 X10'6 (4.70-6.10); RED CELL DISTRIBUTION WIDTH 17.4 % (11.5-14.5); WHITE BLOOD COUNT 11.2 X10'3 (4.5-11.0)
[2023-12-05 02:48] LABS: ALANINE AMINOTRANSFERASE 24 U/L (12-78); ALBUMIN 3.3 G/DL (3.4-5.0); ALBUMIN/GLOBULIN RATIO 1.4 (1.1-1.5); ALKALINE PHOSPHATASE 49 IU/L (46-116); ANION GAP 10 (8-16); ASPARTATE AMINO TRANSFERASE 69 U/L (10-37); BILIRUBIN,TOTAL 0.4 MG/DL (0.1-1.0); BLOOD UREA NITROGEN 23 MG/DL (7-18); BUN/CREATININE RATIO 20.4 (10.0-20.0); CHLORIDE 105 MMOL/L (99-107); CREATININE 1.13 MG/DL (0.60-1.10); GLUCOSE 110 MG/DL (70-104); MAGNESIUM 2.6 MG/DL (1.5-2.4); PHOSPHORUS 3.6 MG/DL (2.3-4.5); POTASSIUM 4.4 MMOL/L (3.5-5.1); SODIUM 140 MMOL/L (135-145); TOTAL CARBON DIOXIDE 24.8 MMOL/L (24-32); TOTAL PROTEIN 5.7 G/DL (6.4-8.2); eCRCL 65 ML/MIN; eGFR 67 ML/MIN
[2023-12-05] MEDS: aspirin 81mg tab.chew PO SCH (09:39)
[2023-12-05] MEDS: metoprolol tartrate 12.5mg (1/2 tablet) PO SCH (09:40)
[2023-12-06] VITALS (20 sets, daily range): BP systolic 100–146; BP diastolic 57–81; PULSE 49–81; RESP 11–24; TEMP 97.5–99; O2SAT 88–97
[2023-12-06 02:42] LABS: BASOPHILS % (AUTO) 0.1 % (0-1); EOSINOPHILS % (AUTO) 0 % (0-6); HEMOGLOBIN 9.1 g/dl (14.0-17.9); LYMPHOCYTES # (AUTO) 1.1 X10'3 (1.1-4.8); LYMPHOCYTES % (AUTO) 6.9 % (21-51); MEAN CORPUSCULAR HGB CONC 32.5 g/dL (33.0-36.5); MEAN CORPUSCULAR VOLUME 86.2 FL (78-98); MEAN PLATELET VOLUME 9.4 FL (7.4-10.4); MONOCYTES # (AUTO) 1.4 X10'3 (0-0.9); MONOCYTES % (AUTO) 9.3 % (2-12); NEUTROPHILS # (AUTO) 12.7 X10'3 (1.8-7.7); NEUTROPHILS % (AUTO) 83.7 % (42-75); PLATELET COUNT 138 X10'3 (140-440); RED BLOOD COUNT 3.24 X10'6 (4.70-6.10); RED CELL DISTRIBUTION WIDTH 17.4 % (11.5-14.5); WHITE BLOOD COUNT 15.2 X10'3 (4.5-11.0)
[2023-12-06 02:54] LABS: ANION GAP 7 (8-16); BLOOD UREA NITROGEN 35 MG/DL (7-18); BUN/CREATININE RATIO 32.7 (10.0-20.0); CALCIUM 8.6 MG/DL (8.5-10.1); CHLORIDE 102 MMOL/L (99-107); CREATININE 1.07 MG/DL (0.60-1.10); GLUCOSE 134 MG/DL (70-104); MAGNESIUM 2.1 MG/DL (1.5-2.4); PHOSPHORUS 2.8 MG/DL (2.3-4.5); POTASSIUM 5.3 MMOL/L (3.5-5.1); SODIUM 137 MMOL/L (135-145); TOTAL CARBON DIOXIDE 28.2 MMOL/L (24-32); eCRCL 80 ML/MIN; eGFR 71 ML/MIN
[2023-12-06 02:56] LABS: ALBUMIN 3.1 G/DL (3.4-5.0)
[2023-12-06] MEDS: magnesium sulf-water 2g/50mL 50 ML IV PRN (05:05)
[2023-12-06] MEDS: pantoprazole 40mg Tablet.DR PO SCH (07:55)
[2023-12-06] MEDS: furosemide 40mg/4ml inj IV ONE (11:08)
[2023-12-07] VITALS (7 sets, daily range): BP systolic 113–140; BP diastolic 62–80; PULSE 60–80; RESP 15–21; TEMP 96.6–98.4; O2SAT 93–96
[2023-12-07 07:00] LABS: BASOPHILS % (AUTO) 0.4 % (0-1); EOSINOPHILS % (AUTO) 0.2 % (0-6); HEMATOCRIT 28.5 % (42.0-52.0); HEMOGLOBIN 9.3 g/dl (14.0-17.9); MEAN CORPUSCULAR HEMOGLOBIN 28.6 PG (27.0-31.0); MEAN CORPUSCULAR HGB CONC 32.6 g/dL (33.0-36.5); MEAN CORPUSCULAR VOLUME 87.7 FL (78-98); MEAN PLATELET VOLUME 9.3 FL (7.4-10.4); MONOCYTES # (AUTO) 1.2 X10'3 (0-0.9); MONOCYTES % (AUTO) 12.2 % (2-12); NEUTROPHILS # (AUTO) 6.6 X10'3 (1.8-7.7); NEUTROPHILS % (AUTO) 67.2 % (42-75); PLATELET COUNT 147 X10'3 (140-440); RED BLOOD COUNT 3.25 X10'6 (4.70-6.10); RED CELL DISTRIBUTION WIDTH 17.6 % (11.5-14.5); WHITE BLOOD COUNT 9.8 X10'3 (4.5-11.0)
[2023-12-07 07:27] LABS: ALBUMIN 2.7 G/DL (3.4-5.0); ANION GAP 7 (8-16); BLOOD UREA NITROGEN 32 MG/DL (7-18); BUN/CREATININE RATIO 29.4 (10.0-20.0); CALCIUM 8.4 MG/DL (8.5-10.1); CHLORIDE 102 MMOL/L (99-107); CREATININE 1.09 MG/DL (0.60-1.10); GLUCOSE 87 MG/DL (70-104); MAGNESIUM 1.8 MG/DL (1.5-2.4); PHOSPHORUS 2.3 MG/DL (2.3-4.5); POTASSIUM 4.7 MMOL/L (3.5-5.1); SODIUM 136 MMOL/L (135-145); TOTAL CARBON DIOXIDE 27.4 MMOL/L (24-32); eCRCL 72 ML/MIN; eGFR 69 ML/MIN
[2023-12-07] MEDS: magnesium hydroxide 30ml (MOM) UD suspension PO PRN (11:01)
[2023-12-07] MEDS: magnesium sulf-water 4G/100mL 100 ML IV PRN (11:01)
[2023-12-07] MEDS: Neutra Phos packet PO PRN (11:01)
[2023-12-08] VITALS (10 sets, daily range): BP systolic 111–167; BP diastolic 59–84; PULSE 70–89; RESP 14–19; TEMP 97.2–98.6; O2SAT 93–98
[2023-12-08 06:29] LABS: ALBUMIN 2.6 G/DL (3.4-5.0); ANION GAP 4 (8-16); BLOOD UREA NITROGEN 18 MG/DL (7-18); BUN/CREATININE RATIO 19.6 (10.0-20.0); CALCIUM 8.2 MG/DL (8.5-10.1); CHLORIDE 101 MMOL/L (99-107); CREATININE 0.92 MG/DL (0.60-1.10); GLUCOSE 95 MG/DL (70-104); PHOSPHORUS 3.1 MG/DL (2.3-4.5); POTASSIUM 4.6 MMOL/L (3.5-5.1); SODIUM 136 MMOL/L (135-145); TOTAL CARBON DIOXIDE 30.6 MMOL/L (24-32); eCRCL 85 ML/MIN; eGFR 84 ML/MIN
[2023-12-08 06:39] LABS: BASOPHILS % (AUTO) 0.2 % (0-1); EOSINOPHILS # (AUTO) 0.1 X10'3 (0-0.9); EOSINOPHILS % (AUTO) 1.6 % (0-6); HEMATOCRIT 29.7 % (42.0-52.0); HEMOGLOBIN 9.7 g/dl (14.0-17.9); LYMPHOCYTES # (AUTO) 2.3 X10'3 (1.1-4.8); LYMPHOCYTES % (AUTO) 25.2 % (21-51); MEAN CORPUSCULAR HEMOGLOBIN 28.4 PG (27.0-31.0); MEAN CORPUSCULAR HGB CONC 32.7 g/dL (33.0-36.5); MEAN CORPUSCULAR VOLUME 86.8 FL (78-98); MEAN PLATELET VOLUME 8.8 FL (7.4-10.4); MONOCYTES % (AUTO) 11.6 % (2-12); NEUTROPHILS # (AUTO) 5.5 X10'3 (1.8-7.7); NEUTROPHILS % (AUTO) 61.4 % (42-75); PLATELET COUNT 204 X10'3 (140-440); RED BLOOD COUNT 3.42 X10'6 (4.70-6.10); RED CELL DISTRIBUTION WIDTH 17.3 % (11.5-14.5)
[2023-12-08] MEDS: metoprolol tartrate 12.5mg (1/2 tablet) PO SCH (09:12)
[2023-12-08] MEDS: lisinopril 10 MG tablet PO SCH (09:13)
[2023-12-09] VITALS (7 sets, daily range): BP systolic 109–152; BP diastolic 61–75; PULSE 63–97; RESP 16–21; TEMP 97–98.9; O2SAT 85–97
[2023-12-09 07:39] LABS: MAGNESIUM 1.9 MG/DL (1.5-2.4); PHOSPHORUS 4.1 MG/DL (2.3-4.5); POTASSIUM 4.9 MMOL/L (3.5-5.1)
[2023-12-09] MEDS: nicotine 21mg patch - 24 hr TD ONE (14:40)
[2023-12-10 02:00] VITALS: BP 108/61; PULSE 68; RESP 20; TEMP 98.4; O2SAT 97
[2023-12-10 06:36] LABS: ACT @ 1.70 U 295 SEC (193-297); ACT @ 2.84 U 402 SEC (260-420); BASELINE ACT 129 SEC (101-148); PATIENT WEIGHT 64.0k KG
[2023-12-10 07:00] VITALS: BP 131/82; PULSE 82; RESP 18; TEMP 97.2; O2SAT 95
[2023-12-10 07:31] LABS: MAGNESIUM 1.9 MG/DL (1.5-2.4); PHOSPHORUS 4.1 MG/DL (2.3-4.5); POTASSIUM 4.7 MMOL/L (3.5-5.1)
[2023-12-10] MEDS: nicotine 21mg patch - 24 hr TD SCH (08:39)
[2023-12-10 08:40] VITALS: BP_SYST 124; PULSE 74; RESP 12
[2023-12-10] MEDS ORDERED: LOP25T PO (09:13)
[2023-12-10] MEDS ORDERED: ATOR10TA PO (09:13)
[2023-12-10] MEDS ORDERED: NICO-687 TD (09:13)
[2023-12-10] MEDS ORDERED: HYDR-3965 PO ×2 (09:13→09:21)
[2023-12-10] MEDS ORDERED: ASPI81TA53 PO (09:13)
[2023-12-10 10:10] VITALS: O2SAT 95
[2023-12-10 15:25] LABS: ABG PO2 347.4 mmHg (83.0-108.0); K (ABG) 6.3 mmol/L (3.40-4.50)
[2023-12-10 15:26] LABS: ABG PO2 413.9 mmHg (83.0-108.0)
[2023-12-10 15:26] LABS: ABG PO2 461.6 mmHg (83.0-108.0)
== END 2023-12-10 16:55 | disposition home or self-care (01) | DRG 163 ==
LOC: ER 13:46 → ED HOLD 16:24 → EDBEDREQ 20:18 → PCU 3S 21:00 → CICU 2S 12-04 11:30 → PCU 3S 12-06 15:26
PROVIDERS: ADMIT Internal Medicine; ATTEND Internal Medicine
PROC: 4A023N7 Measurement of Cardiac Sampling and Pressure, Left Heart, Percutaneous Approach (ICD-10-PCS; 2023-11-30)
PROC: B2111ZZ Fluoroscopy of Multiple Coronary Arteries using Low Osmolar Contrast (ICD-10-PCS; 2023-11-30)
PROC: B2151ZZ Fluoroscopy of Left Heart using Low Osmolar Contrast (ICD-10-PCS; 2023-11-30)
PROC: 02100Z9 Bypass Coronary Artery, One Artery from Left Internal Mammary, Open Approach (ICD-10-PCS; 2023-12-04)
PROC: 02RF08Z Replacement of Aortic Valve with Zooplastic Tissue, Open Approach (ICD-10-PCS; 2023-12-04)
PROC: 06BP4ZZ Excision of Right Saphenous Vein, Percutaneous Endoscopic Approach (ICD-10-PCS; 2023-12-04)
PROC: 5A1221Z Performance of Cardiac Output, Continuous (ICD-10-PCS; 2023-12-04)
PROC: B24BZZ4 Ultrasonography of Heart with Aorta, Transesophageal (ICD-10-PCS; 2023-12-04)
PROC: 021009W Bypass Coronary Artery, One Artery from Aorta with Autologous Venous Tissue, Open Approach (ICD-10-PCS; principal; 2023-12-04 07:47)
DX: I25.10 Atherosclerotic heart disease of native coronary artery without angina pectoris (principal); N17.0 Acute kidney failure with tubular necrosis; I21.4 Non-ST elevation (NSTEMI) myocardial infarction; J44.9 Chronic obstructive pulmonary disease, unspecified; Q21.12 Patent foramen ovale; I35.2 Nonrheumatic aortic (valve) stenosis with insufficiency; I10 Essential (primary) hypertension; F17.210 Nicotine dependence, cigarettes, uncomplicated; F10.90 Alcohol use, unspecified, uncomplicated; L23.7 Allergic contact dermatitis due to plants, except food; Z59.00 Homelessness unspecified; I25.2 Old myocardial infarction; Z82.49 Family history of ischemic heart disease and other diseases of the circulatory system
CPT/HCPCS: 36415; 36600; 71045; 71046; 76376; 80048; 80053; 80305; 81003; 82330; 82435; 82803; 82947; 82948; 83036; 83735; 84100; 84132; 84295; 84484; 85008; 85018; 85025; 85347; 85610; 85730; 86885; 86900; 86901; 86920; 87081; 90732; 93005; 93306; 93312; 93325; 93458; 93880; 93970; 94002; 94010; 94760; 97116; 97161; 97164; 97530; 99152; 99153; 99285; A4615; A4618; A5200; A6213; A6258; A6402; A6449; A7000; A7048; C1751; C1894; G0378; J0171; J0282; J0360; J0690; J1250; J1644; J1650; J1815; J1940; J2060; J2150; J2250; J2270; J2704; J2720; J3010; J3370; J3475; J3480; J3490; J7030; J7040; J7050; J7120; J7512; P9045; P9047; Q9967

== ENCOUNTER 2023-12-13 01:49 | Emergency (ER) | payer MEDICAID ==
[~2023-12-13] VITALS: Ht 180.3 cm; Wt 66.8 kg
[~2023-12-13 01:49] MED LIST: ACET-2778 PO; AMIT10TA6 PO; ASPI81TA53 PO; ATOR10TA PO; HYDR-3965 PO; HYDR25TA5 PO; LISI10TA27 PO; LOP25T PO; MELO-100 PO; NICO-687 TD
[2023-12-13] MEDS: normal saline 1000ML IV soln IVB ONE (02:19)
[2023-12-13 02:23] LABS: BASOPHILS # (AUTO) 0.1 X10'3 (0-0.2); BASOPHILS % (AUTO) 0.4 % (0-1); EOSINOPHILS % (AUTO) 0.2 % (0-6); HEMATOCRIT 27.5 % (42.0-52.0); LYMPHOCYTES # (AUTO) 1.4 X10'3 (1.1-4.8); LYMPHOCYTES % (AUTO) 10.5 % (21-51); MEAN CORPUSCULAR HEMOGLOBIN 28.2 PG (27.0-31.0); MEAN CORPUSCULAR HGB CONC 32.6 g/dL (33.0-36.5); MEAN CORPUSCULAR VOLUME 86.4 FL (78-98); MEAN PLATELET VOLUME 7.2 FL (7.4-10.4); MONOCYTES # (AUTO) 1.1 X10'3 (0-0.9); MONOCYTES % (AUTO) 8.2 % (2-12); NEUTROPHILS # (AUTO) 11.1 X10'3 (1.8-7.7); NEUTROPHILS % (AUTO) 80.7 % (42-75); PLATELET COUNT 475 X10'3 (140-440); RED BLOOD COUNT 3.18 X10'6 (4.70-6.10); RED CELL DISTRIBUTION WIDTH 16.8 % (11.5-14.5); WHITE BLOOD COUNT 13.7 X10'3 (4.5-11.0)
[2023-12-13] MEDS: aspirin 81mg tab.chew PO ONE (02:33)
[2023-12-13 02:34] LABS: INR 1.1 INR; PROTHROMBIN TIME 11.4 SECONDS (9.0-12.0)
[2023-12-13] MEDS: diltiazem 5mg/ml 5ml inj. IV ONE (02:34)
[2023-12-13] MEDS: diltiazem-NS 100mg/100ml 100 ML IV SCH (02:44)
[2023-12-13 02:47] LABS: ANION GAP 11 (8-16); BLOOD UREA NITROGEN 29 MG/DL (7-18); BUN/CREATININE RATIO 14.6 (10.0-20.0); CALCIUM 9.4 MG/DL (8.5-10.1); CHLORIDE 97 MMOL/L (99-107); CREATININE 1.99 MG/DL (0.60-1.10); GLUCOSE 100 MG/DL (70-104); MAGNESIUM 1.8 MG/DL (1.5-2.4); POTASSIUM 4.7 MMOL/L (3.5-5.1); PRO BRAIN NATRIURETIC PEPTIDE 6100 PG/ML (0-125); SODIUM 134 MMOL/L (135-145); TOTAL CARBON DIOXIDE 25.9 MMOL/L (24-32); eCRCL 38 ML/MIN; eGFR 35 ML/MIN
[2023-12-13 05:38] LABS: URINE AMPHETAMINE SCREEN POSITIVE (Neg); URINE BARBITUATE SCREEN NEGATIVE (Neg); URINE BENZODIAZEPINES SCREEN NEGATIVE (Neg); URINE CANNABINOID SCREEN NEGATIVE (Neg); URINE COCAINE SCREEN NEGATIVE (Neg); URINE METHADONE SCREEN NEGATIVE (Neg); URINE OPIATE SCREEN POSITIVE (Neg); URINE PHENCYCLIDINE SCREEN NEGATIVE (Neg)
[2023-12-13 08:19] VITALS: BP 155/79; PULSE 83; RESP 22; O2SAT 98
[2023-12-13 08:30] VITALS: TEMP 98.1
== END 2023-12-13 08:32 | disposition home or self-care (01) ==
LOC: ER 01:49
DX: I48.20 Chronic atrial fibrillation, unspecified (principal); I25.10 Atherosclerotic heart disease of native coronary artery without angina pectoris; I10 Essential (primary) hypertension; M19.90 Unspecified osteoarthritis, unspecified site; Z79.899 Other long term (current) drug therapy; Z79.82 Long term (current) use of aspirin; Z98.890 Other specified postprocedural states; Z72.89 Other problems related to lifestyle
CPT/HCPCS: 36415; 71045; 80048; 80305; 83735; 83880; 84484; 85025; 85610; 93005; 96365; 96366; 96376; 99285; J3490; J7030; 96361; 96374

== ENCOUNTER 2023-12-17 19:31 | Inpatient (IN) | payer MEDICAID ==
[~2023-12-17] VITALS: Ht 180.3 cm; Wt 66.0 kg
[2023-12-17 20:20] LABS: BASOPHILS # (AUTO) 0.1 X10'3 (0-0.2); BASOPHILS % (AUTO) 0.7 % (0-1); EOSINOPHILS # (AUTO) 0.4 X10'3 (0-0.9); EOSINOPHILS % (AUTO) 3.5 % (0-6); HEMATOCRIT 25.4 % (42.0-52.0); HEMOGLOBIN 8.4 g/dl (14.0-17.9); LYMPHOCYTES # (AUTO) 1.6 X10'3 (1.1-4.8); MEAN CORPUSCULAR HEMOGLOBIN 28.4 PG (27.0-31.0); MEAN CORPUSCULAR HGB CONC 33.1 g/dL (33.0-36.5); MEAN CORPUSCULAR VOLUME 85.7 FL (78-98); MEAN PLATELET VOLUME 6.3 FL (7.4-10.4); MONOCYTES # (AUTO) 0.6 X10'3 (0-0.9); MONOCYTES % (AUTO) 5.5 % (2-12); NEUTROPHILS # (AUTO) 7.6 X10'3 (1.8-7.7); NEUTROPHILS % (AUTO) 74.3 % (42-75); PLATELET COUNT 553 X10'3 (140-440); RED BLOOD COUNT 2.96 X10'6 (4.70-6.10); RED CELL DISTRIBUTION WIDTH 16.6 % (11.5-14.5); WHITE BLOOD COUNT 10.2 X10'3 (4.5-11.0)
[2023-12-17 20:31] LABS: ALANINE AMINOTRANSFERASE 32 U/L (12-78); ALBUMIN 2.9 G/DL (3.4-5.0); ALBUMIN/GLOBULIN RATIO 0.7 (1.1-1.5); ALKALINE PHOSPHATASE 80 IU/L (46-116); ANION GAP 6 (8-16); ASPARTATE AMINO TRANSFERASE 22 U/L (10-37); BILIRUBIN,TOTAL 0.5 MG/DL (0.1-1.0); BLOOD UREA NITROGEN 24 MG/DL (7-18); BUN/CREATININE RATIO 17.4 (10.0-20.0); CALCIUM 8.9 MG/DL (8.5-10.1); CHLORIDE 98 MMOL/L (99-107); CREATININE 1.38 MG/DL (0.60-1.10); GLUCOSE 107 MG/DL (70-104); POTASSIUM 3.3 MMOL/L (3.5-5.1); SODIUM 135 MMOL/L (135-145); TOTAL CARBON DIOXIDE 30.8 MMOL/L (24-32); TOTAL PROTEIN 6.8 G/DL (6.4-8.2); eCRCL 54 ML/MIN; eGFR 53 ML/MIN
[2023-12-17 20:38] LABS: PRO BRAIN NATRIURETIC PEPTIDE 2503 PG/ML (0-125)
[2023-12-17 21:42] LABS: ETHANOL < 10 MG/DL (<10)
[2023-12-17 22:18] LABS: BILIRUBIN,URINE NEGATIVE (Neg); CLARITY,URINE CLEAR (Clear); COLOR,URINE YELLOW (Yellow); GLUCOSE, URINE NEGATIVE (Neg); KETONES,URINE NEGATIVE (Neg); LEUKOCYTE ESTERASE ,URINE NEGATIVE (Neg); NITRITES, URINE NEGATIVE (Neg); OCCULT BLOOD,URINE NEGATIVE (Neg); PROTEIN,URINE NEGATIVE (Neg)
[2023-12-17 22:21] LABS: UA COLLECTION TYPE URINAL
[2023-12-17] MEDS ORDERED: clopidogrel 300mg tablet PO ONE (22:35)
[2023-12-17] MEDS: aspirin 325mg tablet PO ONE (22:47)
[2023-12-17 22:58] LABS: URINE AMPHETAMINE SCREEN POSITIVE (Neg); URINE BARBITUATE SCREEN NEGATIVE (Neg); URINE BENZODIAZEPINES SCREEN NEGATIVE (Neg); URINE CANNABINOID SCREEN POSITIVE (Neg); URINE COCAINE SCREEN NEGATIVE (Neg); URINE METHADONE SCREEN NEGATIVE (Neg); URINE OPIATE SCREEN POSITIVE (Neg); URINE PHENCYCLIDINE SCREEN NEGATIVE (Neg)
[2023-12-17] MEDS ORDERED: ondansetron/PF 4mg/2ml inj IV PRN (23:00)
[2023-12-17] MEDS ORDERED: magnesium sulf-water 2g/50mL 50 ML IV PRN (23:00)
[2023-12-17] MEDS ORDERED: magnesium Cl slow-release 64mg tablet PO PRN (23:00)
[2023-12-17] MEDS ORDERED: magnesium hydroxide 30ml (MOM) UD suspension PO PRN (23:00)
[2023-12-17] MEDS ORDERED: mag hydrox/Alum hydrox/simeth 30ml oral suspension PO PRN (23:00)
[2023-12-17] MEDS: clopidogrel 75mg tablet PO ONE (23:18)
[2023-12-17 23:22] LABS: MAGNESIUM 1.5 MG/DL (1.5-2.4); PHOSPHORUS 3.9 MG/DL (2.3-4.5)
[2023-12-18] MEDS: normal saline 1000ml 1,000 ML IV SCH (00:11)
[2023-12-18] MEDS: potassium Cl 20 mEq SR tablet PO PRN ×2 (00:11→04:18)
[2023-12-18] MEDS: atorvastatin 20mg tablet PO SCH (00:11)
[2023-12-18] MEDS: nicotine 14mg patch - 24hr TD ONE (00:11)
[2023-12-18] MEDS: heparin, porcine 5000 units/ml vial SQ SCH (00:12)
[2023-12-18 03:14] LABS: BASOPHILS % (AUTO) 0.4 % (0-1); EOSINOPHILS # (AUTO) 0.5 X10'3 (0-0.9); HEMATOCRIT 28.4 % (42.0-52.0); HEMOGLOBIN 9.2 g/dl (14.0-17.9); LYMPHOCYTES # (AUTO) 2.4 X10'3 (1.1-4.8); LYMPHOCYTES % (AUTO) 22.4 % (21-51); MEAN CORPUSCULAR HGB CONC 32.3 g/dL (33.0-36.5); MEAN CORPUSCULAR VOLUME 86.4 FL (78-98); MEAN PLATELET VOLUME 6.6 FL (7.4-10.4); MONOCYTES # (AUTO) 0.9 X10'3 (0-0.9); MONOCYTES % (AUTO) 8.3 % (2-12); NEUTROPHILS # (AUTO) 6.7 X10'3 (1.8-7.7); NEUTROPHILS % (AUTO) 63.9 % (42-75); PLATELET COUNT 570 X10'3 (140-440); RED BLOOD COUNT 3.28 X10'6 (4.70-6.10); RED CELL DISTRIBUTION WIDTH 16.7 % (11.5-14.5); WHITE BLOOD COUNT 10.5 X10'3 (4.5-11.0)
[2023-12-18 03:34] LABS: ALBUMIN 2.5 G/DL (3.4-5.0); ANION GAP 9 (8-16); BLOOD UREA NITROGEN 20 MG/DL (7-18); BUN/CREATININE RATIO 16.8 (10.0-20.0); CALCIUM 8.6 MG/DL (8.5-10.1); CHLORIDE 101 MMOL/L (99-107); CHOL/HDL RATIO 3.2 (0.00-4.99); CHOLESTEROL 126 MG/DL (0-200); CREATININE 1.19 MG/DL (0.60-1.10); GLUCOSE 85 MG/DL (70-104); HDL CHOLESTEROL 40 MG/DL (35-60); LDL CHOLESTEROL 71 MG/DL (50-100); SODIUM 137 MMOL/L (135-145); TRIGLYCERIDES 46 MG/DL (20-135); eCRCL 63 ML/MIN; eGFR 63 ML/MIN
[2023-12-18 03:48] LABS: POTASSIUM 2.9 MMOL/L (3.5-5.1)
[2023-12-18] MEDS ORDERED: METO25TA6 PO (03:50)
[2023-12-18] MEDS ORDERED: HYDR-3964 PO (03:50)
[2023-12-18] MEDS ORDERED: ATOR10TA70 PO (03:50)
[2023-12-18] MEDS: potassium Cl 20mEq/100mL bag 100 ML IV SCH (04:10)
[2023-12-18] MEDS: metoprolol tartrate 1mg/ml inj IV ONE (04:13)
[2023-12-18] MEDS: normal saline 1000ml 1,000 ML IV ONE (04:16)
[2023-12-18] MEDS: magnesium sulf-water 4G/100mL 100 ML IV PRN (04:18)
[2023-12-18 05:30] VITALS: BP 101/69; PULSE 81; RESP 26; TEMP 98; O2SAT 97
[2023-12-18] MEDS: acetaminophen 325mg tablet PO PRN (05:31)
[2023-12-18 06:00] VITALS: BP 101/69; PULSE 81; RESP 26; TEMP 98; O2SAT 97
[2023-12-18] MEDS: potassium Cl 40MEQ/1/2NS 520ml 520 ML IV PRN (06:33)
[2023-12-18] MEDS: K and/or MAG REPLACEMENT MC SCH (08:00)
[2023-12-18] MEDS ORDERED: apixaban 5mg tablet PO SCH (08:00)
[2023-12-18] MEDS: metoprolol tartrate 12.5mg (1/2 tablet) PO SCH (08:02)
[2023-12-18] MEDS: apixaban 5mg tablet PO SCH (08:03)
[2023-12-18] MEDS: aspirin 81mg tab.chew PO SCH (08:03)
[2023-12-18 14:00] VITALS: RESP 18
[2023-12-18] MEDS: pneumococcal 23-VAL P-sac vacc 25 mcg/0.5ml vial IMVAC ONE (16:22)
[2023-12-18 16:40] VITALS: BP 150/68; PULSE 70; RESP 16; TEMP 98.1; O2SAT 98
[2023-12-18 17:00] VITALS: BP 128/48; PULSE 70; RESP 14; TEMP 97.9; O2SAT 97
[2023-12-18] MEDS: metoprolol tartrate 25mg tablet PO SCH (20:40)
[2023-12-18 22:00] VITALS: BP 160/89; PULSE 76; RESP 17; TEMP 97; O2SAT 98
[2023-12-18] MEDS: clopidogrel 75mg tablet PO SCH (22:05)
[2023-12-18] MEDS: Melatonin 3mg tablet PO SCH (22:20)
[2023-12-19] VITALS (8 sets, daily range): BP systolic 102–193; BP diastolic 61–91; PULSE 66–88; RESP 14–18; TEMP 97.9–99; O2SAT 93–98
[2023-12-19] MEDS ORDERED: guaiFENesin 200 MG/10 ML oral syrup UD cup PO PRN (02:10)
[2023-12-19] MEDS: ipratropium/albuterol 3ml nebule NEB PRN (02:23)
[2023-12-19] MEDS: furosemide 20MG tablet PO ONE (02:34)
[2023-12-19 07:03] LABS: EOSINOPHILS # (AUTO) 0.2 X10'3 (0-0.9); LYMPHOCYTES # (AUTO) 1.3 X10'3 (1.1-4.8); MEAN PLATELET VOLUME 6.6 FL (7.4-10.4); MONOCYTES # (AUTO) 0.7 X10'3 (0-0.9); NEUTROPHILS % (AUTO) 74.1 % (42-75)
[2023-12-19 07:06] LABS: BASOPHILS # (AUTO) 0.1 X10'3 (0-0.2); BASOPHILS % (AUTO) 0.6 % (0-1); EOSINOPHILS % (AUTO) 2.5 % (0-6); HEMATOCRIT 29.5 % (42.0-52.0); HEMOGLOBIN 9.4 g/dl (14.0-17.9); LYMPHOCYTES % (AUTO) 15.3 % (21-51); MEAN CORPUSCULAR HEMOGLOBIN 27.5 PG (27.0-31.0); MEAN CORPUSCULAR VOLUME 85.9 FL (78-98); MONOCYTES % (AUTO) 7.5 % (2-12); NEUTROPHILS # (AUTO) 6.5 X10'3 (1.8-7.7); PLATELET COUNT 630 X10'3 (140-440); RED BLOOD COUNT 3.43 X10'6 (4.70-6.10); RED CELL DISTRIBUTION WIDTH 16.7 % (11.5-14.5); WHITE BLOOD COUNT 8.7 X10'3 (4.5-11.0)
[2023-12-19 07:08] LABS: ALBUMIN 2.7 G/DL (3.4-5.0); ANION GAP 8 (8-16); BLOOD UREA NITROGEN 19 MG/DL (7-18); BUN/CREATININE RATIO 18.4 (10.0-20.0); CALCIUM 8.7 MG/DL (8.5-10.1); CHLORIDE 104 MMOL/L (99-107); CREATININE 1.03 MG/DL (0.60-1.10); GLUCOSE 85 MG/DL (70-104); POTASSIUM 4.3 MMOL/L (3.5-5.1); SODIUM 136 MMOL/L (135-145); eCRCL 73 ML/MIN; eGFR 74 ML/MIN
[2023-12-19] MEDS: nicotine 14mg patch - 24hr TD SCH (07:22)
[2023-12-19] MEDS: lisinopril 10 MG tablet PO SCH (07:23)
[2023-12-19] MEDS ORDERED: APIX5TAB3 PO (12:29)
[2023-12-19] MEDS ORDERED: ATOR-2 PO (12:29)
== END 2023-12-19 14:35 | disposition home or self-care (01) | DRG 45 ==
LOC: ER 19:31 → ED HOLD 23:02 → ORTHO 4S 12-18 04:30
PROVIDERS: ADMIT Internal Medicine Pulmonary Disease; ATTEND Internal Medicine
DX: I63.9 Cerebral infarction, unspecified (principal); N17.0 Acute kidney failure with tubular necrosis; D64.9 Anemia, unspecified; F17.210 Nicotine dependence, cigarettes, uncomplicated; I25.10 Atherosclerotic heart disease of native coronary artery without angina pectoris; I48.20 Chronic atrial fibrillation, unspecified; F15.90 Other stimulant use, unspecified, uncomplicated; I10 Essential (primary) hypertension; Z79.82 Long term (current) use of aspirin; Z95.1 Presence of aortocoronary bypass graft; Z79.899 Other long term (current) drug therapy; Z87.442 Personal history of urinary calculi; Z59.00 Homelessness unspecified
CPT/HCPCS: 36415; 70450; 70551; 71045; 80048; 80053; 80061; 80305; 80320; 81003; 83735; 83880; 84100; 84132; 84484; 85025; 87081; 90732; 92508; 92616; 93005; 94640; 94760; 97116; 97161; 97530; 99285; A6449; G0378; J1644; J3475; J3480; J3490; J7030

== ENCOUNTER 2024-01-25 18:35 | Inpatient (IN) | payer MEDICAID ==
[~2024-01-25] VITALS: Ht 180.3 cm; Wt 63.0 kg
[~2024-01-25 18:35] MED LIST changes: +ALBU8HFA PO; +APIX5TAB3 PO; -ASPI81TA53 PO; +ATOR-2 PO; -ATOR10TA PO; +FER325T PO; +FLUT12AE5 INH; -HYDR-3965 PO; -HYDR25TA5 PO; +LACT1CAP26 PO; -MELO-100 PO; +PANT40TA54 PO; +SUCR1TAB PO
[2024-01-25 19:00] LABS: BASOPHILS # (AUTO) 0.1 X10'3 (0-0.2); BASOPHILS % (AUTO) 0.8 % (0-1); EOSINOPHILS # (AUTO) 0.1 X10'3 (0-0.9); EOSINOPHILS % (AUTO) 1.7 % (0-6); HEMATOCRIT 26.1 % (42.0-52.0); LYMPHOCYTES % (AUTO) 24.4 % (21-51); MEAN CORPUSCULAR HEMOGLOBIN 24.6 PG (27.0-31.0); MEAN CORPUSCULAR HGB CONC 30.8 g/dL (33.0-36.5); MEAN PLATELET VOLUME 7.6 FL (7.4-10.4); MONOCYTES # (AUTO) 0.4 X10'3 (0-0.9); MONOCYTES % (AUTO) 4.2 % (2-12); NEUTROPHILS # (AUTO) 5.8 X10'3 (1.8-7.7); NEUTROPHILS % (AUTO) 68.9 % (42-75); PLATELET COUNT 378 X10'3 (140-440); RED BLOOD COUNT 3.26 X10'6 (4.70-6.10); RED CELL DISTRIBUTION WIDTH 19.2 % (11.5-14.5); WHITE BLOOD COUNT 8.4 X10'3 (4.5-11.0)
[2024-01-25] MEDS: normal saline 1000ml 1,000 ML IV ONE (19:08)
[2024-01-25 19:17] LABS: ALBUMIN 3.1 G/DL (3.4-5.0); ANION GAP 7 (8-16); BLOOD UREA NITROGEN 20 MG/DL (7-18); BUN/CREATININE RATIO 15.5 (10.0-20.0); CALCIUM 8.3 MG/DL (8.5-10.1); CHLORIDE 101 MMOL/L (99-107); CREATININE 1.29 MG/DL (0.60-1.10); ETHANOL < 10 MG/DL (<10); GLUCOSE 85 MG/DL (70-104); POTASSIUM 3.9 MMOL/L (3.5-5.1); PRO BRAIN NATRIURETIC PEPTIDE 802 PG/ML (0-125); SODIUM 136 MMOL/L (135-145); TOTAL CARBON DIOXIDE 28.2 MMOL/L (24-32); eCRCL 56 ML/MIN; eGFR 57 ML/MIN
[2024-01-25 19:39] LABS: APTT 26 SECONDS (22-32); PROTHROMBIN TIME 10.6 SECONDS (9.0-12.0)
[2024-01-25] MEDS: nitroGLYCERIN 0.2mg/hour patch TD ONE (19:40)
[2024-01-25 19:58] LABS: ANISOCYTOSIS 2+; HYPOCHROMASIA 2+; PLATELET ESTIMATE NORMAL
[2024-01-25 19:59] LABS: BURR CELLS FEW; SCHISTOCYTES FEW; STOMATOCYTES FEW
[2024-01-25] MEDS: ondansetron/PF 4mg/2ml inj IV ONE (20:23)
[2024-01-25] MEDS ORDERED: pantoprazole 40mg IV 80 MG in normal saline 100ml IV soln 100 ML IV ONE (20:35)
[2024-01-25 20:39] LABS: BILIRUBIN,URINE NEGATIVE (Neg); CLARITY,URINE CLEAR (Clear); COLOR,URINE YELLOW (Yellow); GLUCOSE, URINE NEGATIVE (Neg); KETONES,URINE NEGATIVE (Neg); LEUKOCYTE ESTERASE ,URINE NEGATIVE (Neg); NITRITES, URINE NEGATIVE (Neg); OCCULT BLOOD,URINE NEGATIVE (Neg); PROTEIN,URINE NEGATIVE (Neg); UROBILINOGEN,URINE 0.2 E.U/dL (0.2-1.0)
[2024-01-25 20:47] LABS: UA COLLECTION TYPE NON-SPECIFIED
[2024-01-25 20:48] LABS: URINE AMPHETAMINE SCREEN POSITIVE (Neg); URINE BARBITUATE SCREEN NEGATIVE (Neg); URINE BENZODIAZEPINES SCREEN NEGATIVE (Neg); URINE CANNABINOID SCREEN NEGATIVE (Neg); URINE COCAINE SCREEN NEGATIVE (Neg); URINE METHADONE SCREEN NEGATIVE (Neg); URINE OPIATE SCREEN POSITIVE (Neg); URINE PHENCYCLIDINE SCREEN NEGATIVE (Neg)
[2024-01-25] MEDS: pantoprazole 40 MG vial IV ONE (21:20)
[2024-01-25 21:53] LABS: OCCULT BLOOD STOOL POSITIVE (Neg)
[2024-01-25] MEDS ORDERED: magnesium sulf-water 4G/100mL 100 ML IV PRN (22:05)
[2024-01-25] MEDS ORDERED: ondansetron/PF 4mg/2ml inj IV PRN (22:05)
[2024-01-25] MEDS ORDERED: potassium Cl 20 mEq SR tablet PO PRN ×2 (22:05)
[2024-01-25] MEDS ORDERED: magnesium sulf-water 2g/50mL 50 ML IV PRN (22:05)
[2024-01-25] MEDS ORDERED: potassium Cl 40MEQ/1/2NS 520ml 520 ML IV PRN (22:05)
[2024-01-25] MEDS ORDERED: magnesium hydroxide 30ml (MOM) UD suspension PO PRN (22:05)
[2024-01-25] MEDS ORDERED: magnesium Cl slow-release 64mg tablet PO PRN (22:05)
[2024-01-25] MEDS ORDERED: mag hydrox/Alum hydrox/simeth 30ml oral suspension PO PRN (22:05)
[2024-01-25] MEDS ORDERED: acetaminophen 325mg tablet PO PRN (22:05)
[2024-01-25] MEDS ORDERED: ATOR80TA PO (22:19)
[2024-01-25] MEDS ORDERED: LISI20TA28 PO (22:19)
[2024-01-25] MEDS ORDERED: APIX5TAB3 PO (22:19)
[2024-01-25] MEDS ORDERED: METO25TA6 PO (22:20)
[2024-01-26] MEDS ORDERED: non-formulary drug (Acetaminophen (Acetaminophen ER) 1 TAB) PO PRN (01:35)
[2024-01-26] MEDS ORDERED: albuterol 2.5 MG/3 ML nebule NEB PRN (02:30)
[2024-01-26 03:26] LABS: BASOPHILS % (AUTO) 0.5 % (0-1); EOSINOPHILS # (AUTO) 0.3 X10'3 (0-0.9); HEMATOCRIT 24.3 % (42.0-52.0); HEMOGLOBIN 7.3 g/dl (14.0-17.9); MEAN CORPUSCULAR HGB CONC 30.2 g/dL (33.0-36.5); MEAN CORPUSCULAR VOLUME 79.5 FL (78-98); MEAN PLATELET VOLUME 7.5 FL (7.4-10.4); MONOCYTES # (AUTO) 0.4 X10'3 (0-0.9); MONOCYTES % (AUTO) 6.3 % (2-12); NEUTROPHILS # (AUTO) 4.7 X10'3 (1.8-7.7); NEUTROPHILS % (AUTO) 73.2 % (42-75); PLATELET COUNT 334 X10'3 (140-440); RED BLOOD COUNT 3.05 X10'6 (4.70-6.10); RED CELL DISTRIBUTION WIDTH 19.4 % (11.5-14.5); WHITE BLOOD COUNT 6.4 X10'3 (4.5-11.0)
[2024-01-26 03:41] LABS: ALBUMIN 2.5 G/DL (3.4-5.0); ANION GAP 7 (8-16); BLOOD UREA NITROGEN 24 MG/DL (7-18); BUN/CREATININE RATIO 21.4 (10.0-20.0); CALCIUM 7.9 MG/DL (8.5-10.1); CHLORIDE 103 MMOL/L (99-107); CREATININE 1.12 MG/DL (0.60-1.10); GLUCOSE 106 MG/DL (70-104); SODIUM 136 MMOL/L (135-145); TOTAL CARBON DIOXIDE 26.5 MMOL/L (24-32); eCRCL 64 ML/MIN; eGFR 67 ML/MIN
[2024-01-26 04:33] LABS: PLATELET ESTIMATE NORMAL; POLYCHROMASIA 1+
[2024-01-26 04:34] LABS: ANISOCYTOSIS 1+; HYPOCHROMASIA 2+; MICROCYTOSIS 1+; POIKILOCYTOSIS 2+
[2024-01-26 04:35] LABS: BURR CELLS 2+; ELLIPTOCYTES 1+; STOMATOCYTES 1+
[2024-01-26] MEDS: K and/or MAG REPLACEMENT MC SCH (08:00)
[2024-01-26 08:30] VITALS: RESP 16; O2SAT 96
[2024-01-26 08:35] VITALS: BP 109/69; PULSE 88; RESP 16; TEMP 99.1; O2SAT 96
[2024-01-26] MEDS: lisinopril 10 MG tablet PO SCH (10:48)
[2024-01-26] MEDS: ferrous sulfate 325mg tablet PO SCH (10:48)
[2024-01-26] MEDS: docusate sod 100mg capsule PO SCH (10:48)
[2024-01-26] MEDS: atorvastatin 20mg tablet PO SCH (10:48)
[2024-01-26] MEDS: apixaban 5mg tablet PO SCH (10:48)
[2024-01-26] MEDS: metoprolol tartrate 25mg tablet PO SCH (10:51)
[2024-01-26 11:00] VITALS: BP 125/62; PULSE 69; RESP 16; TEMP 98.7; O2SAT 94
[2024-01-26 15:00] VITALS: BP 100/37; PULSE 66; RESP 20; TEMP 97.3; O2SAT 94
[2024-01-26 20:00] VITALS: RESP 19; O2SAT 97
[2024-01-26] MEDS: amitriptyline 10mg tablet PO SCH (20:37)
[2024-01-26 22:00] VITALS: BP 108/61; PULSE 70; RESP 19; TEMP 97.8; O2SAT 97
[2024-01-27] VITALS (16 sets, daily range): BP systolic 95–153; BP diastolic 41–71; PULSE 50–71; RESP 12–25; TEMP 97–99; O2SAT 96–99
[2024-01-27 07:06] LABS: BASOPHILS % (AUTO) 0.6 % (0-1); EOSINOPHILS # (AUTO) 0.2 X10'3 (0-0.9); EOSINOPHILS % (AUTO) 3.5 % (0-6); HEMATOCRIT 22.8 % (42.0-52.0); LYMPHOCYTES # (AUTO) 2.1 X10'3 (1.1-4.8); LYMPHOCYTES % (AUTO) 38.6 % (21-51); MEAN CORPUSCULAR HEMOGLOBIN 24.1 PG (27.0-31.0); MEAN CORPUSCULAR HGB CONC 30.3 g/dL (33.0-36.5); MEAN CORPUSCULAR VOLUME 79.5 FL (78-98); MEAN PLATELET VOLUME 7.9 FL (7.4-10.4); MONOCYTES # (AUTO) 0.6 X10'3 (0-0.9); MONOCYTES % (AUTO) 10.3 % (2-12); NEUTROPHILS # (AUTO) 2.6 X10'3 (1.8-7.7); PLATELET COUNT 323 X10'3 (140-440); RED BLOOD COUNT 2.87 X10'6 (4.70-6.10); WHITE BLOOD COUNT 5.4 X10'3 (4.5-11.0)
[2024-01-27 07:23] LABS: HEMOGLOBIN 6.9 g/dl (14.0-17.9)
[2024-01-27 07:35] LABS: ALBUMIN 2.5 G/DL (3.4-5.0); ANION GAP 4 (8-16); BLOOD UREA NITROGEN 21 MG/DL (7-18); BUN/CREATININE RATIO 17.5 (10.0-20.0); CALCIUM 8.1 MG/DL (8.5-10.1); CHLORIDE 103 MMOL/L (99-107); GLUCOSE 82 MG/DL (70-104); MAGNESIUM 1.9 MG/DL (1.5-2.4); POTASSIUM 4.1 MMOL/L (3.5-5.1); SODIUM 135 MMOL/L (135-145); TOTAL CARBON DIOXIDE 27.9 MMOL/L (24-32); eCRCL 60 ML/MIN; eGFR 62 ML/MIN
[2024-01-27] MEDS: pantoprazole 40MG/NS 100ML BAG 100 ML IV SCH (12:48)
[2024-01-27] MEDS ORDERED: nitroGLYCERIN 0.4mg SUBLingual tab SL PRN (19:05)
[2024-01-27] MEDS ORDERED: aminophylline 250mg/10ml inj. IV PRN (19:05)
[2024-01-27] MEDS ORDERED: metoprolol tartrate 1mg/ml inj IV PRN (19:05)
[2024-01-28] VITALS (14 sets, daily range): BP systolic 100–158; BP diastolic 56–80; PULSE 49–78; RESP 16–22; TEMP 97.4–98.3; O2SAT 97–100
[2024-01-28 07:32] LABS: BASOPHILS % (AUTO) 0.6 % (0-1); EOSINOPHILS # (AUTO) 0.2 X10'3 (0-0.9); EOSINOPHILS % (AUTO) 3.5 % (0-6); HEMATOCRIT 27.8 % (42.0-52.0); HEMOGLOBIN 8.6 g/dl (14.0-17.9); LYMPHOCYTES # (AUTO) 1.9 X10'3 (1.1-4.8); MEAN CORPUSCULAR HGB CONC 30.9 g/dL (33.0-36.5); MEAN CORPUSCULAR VOLUME 81.1 FL (78-98); MEAN PLATELET VOLUME 8.2 FL (7.4-10.4); MONOCYTES # (AUTO) 0.6 X10'3 (0-0.9); MONOCYTES % (AUTO) 9.7 % (2-12); NEUTROPHILS # (AUTO) 3.8 X10'3 (1.8-7.7); NEUTROPHILS % (AUTO) 57.2 % (42-75); PLATELET COUNT 318 X10'3 (140-440); RED BLOOD COUNT 3.43 X10'6 (4.70-6.10); RED CELL DISTRIBUTION WIDTH 19.3 % (11.5-14.5); WHITE BLOOD COUNT 6.6 X10'3 (4.5-11.0)
[2024-01-28 07:54] LABS: ALBUMIN 2.7 G/DL (3.4-5.0); ANION GAP 3 (8-16); BLOOD UREA NITROGEN 20 MG/DL (7-18); BUN/CREATININE RATIO 18.3 (10.0-20.0); CALCIUM 8.3 MG/DL (8.5-10.1); CHLORIDE 102 MMOL/L (99-107); CREATININE 1.09 MG/DL (0.60-1.10); GLUCOSE 81 MG/DL (70-104); MAGNESIUM 1.8 MG/DL (1.5-2.4); POTASSIUM 4.2 MMOL/L (3.5-5.1); SODIUM 133 MMOL/L (135-145); TOTAL CARBON DIOXIDE 27.7 MMOL/L (24-32); eCRCL 66 ML/MIN; eGFR 69 ML/MIN
[2024-01-28] MEDS: regadenoson 0.4mg/5ml syringe IV PRN (08:30)
[2024-01-28] MEDS ORDERED: LISI10TA27 PO (17:01)
[2024-01-28] MEDS ORDERED: ATOR20TA66 PO (17:01)
[2024-01-28] MEDS ORDERED: METO50TA16 PO (17:01)
[2024-01-28] MEDS ORDERED: AMIT10TA6 PO (17:01)
[2024-01-28] MEDS ORDERED: APIX5TAB3 PO (17:01)
== END 2024-01-28 17:15 | disposition home or self-care (01) | DRG 45 ==
LOC: ER 18:36 → ED HOLD 21:27 → UNDOADMIN 21:27 → ED HOLD 22:04 → EDBEDREQ 01-26 05:47 → PCU 3S 01-26 08:35 → ED HOLD 01-26 08:35
PROVIDERS: ADMIT Internal Medicine Critical Care Medicine; ATTEND Family Medicine
PROC: 30233N1 Transfusion of Nonautologous Red Blood Cells into Peripheral Vein, Percutaneous Approach (ICD-10-PCS; 2024-01-27)
PROC: 4A02XM4 Measurement of Cardiac Total Activity, External Approach (ICD-10-PCS; principal; 2024-01-28)
PROC: 3E033HZ Introduction of Radioactive Substance into Peripheral Vein, Percutaneous Approach (ICD-10-PCS; 2024-01-28)
DX: I63.9 Cerebral infarction, unspecified (principal); I50.21 Acute systolic (congestive) heart failure; I21.A1 Myocardial infarction type 2; E44.0 Moderate protein-calorie malnutrition; I08.2 Rheumatic disorders of both aortic and tricuspid valves; I48.0 Paroxysmal atrial fibrillation; D64.9 Anemia, unspecified; I13.0 Hypertensive heart and chronic kidney disease with heart failure and stage 1 through stage 4 chronic kidney disease, or unspecified chronic kidney disease; F17.210 Nicotine dependence, cigarettes, uncomplicated; N18.30 Chronic kidney disease, stage 3 unspecified; I25.10 Atherosclerotic heart disease of native coronary artery without angina pectoris; I65.23 Occlusion and stenosis of bilateral carotid arteries; J44.9 Chronic obstructive pulmonary disease, unspecified; F15.129 Other stimulant abuse with intoxication, unspecified; Z86.73 Personal history of transient ischemic attack (TIA), and cerebral infarction without residual deficits; Z91.199 Patient's noncompliance with other medical treatment and regimen due to unspecified reason; Z68.1 Body mass index [BMI] 19.9 or less, adult; I25.2 Old myocardial infarction; Z59.00 Homelessness unspecified; Z95.1 Presence of aortocoronary bypass graft; Z95.3 Presence of xenogenic heart valve; Z84.1 Family history of disorders of kidney and ureter; Z82.49 Family history of ischemic heart disease and other diseases of the circulatory system
CPT/HCPCS: 36415; 36430; 71045; 78452; 80048; 80305; 80320; 81003; 82272; 83735; 83880; 84484; 85008; 85025; 85610; 85730; 86885; 86900; 86901; 86920; 93005; 93017; 94760; 96374; 96375; 99285; A9500; G0378; J2405; J2470; J2785; J7030; J7040; P9016

== ENCOUNTER 2024-02-18 19:48 | Emergency (ER) | payer MEDICAID ==
[~2024-02-18] VITALS: Ht 180.3 cm; Wt 63.6 kg
[~2024-02-18 19:48] MED LIST changes: -ALBU8HFA PO; -ATOR-2 PO; +ATOR-429 PO; +ATOR20TA66 PO; -FER325T PO; -FLUT12AE5 INH; -LACT1CAP26 PO; +LISI20TA28 PO; -LOP25T PO; +METO25TA6 PO; -NICO-687 TD; -PANT40TA54 PO; -SUCR1TAB PO
[2024-02-18 20:08] LABS: BASOPHILS # (AUTO) 0.1 X10'3 (0-0.2); BASOPHILS % (AUTO) 0.9 % (0-1); EOSINOPHILS % (AUTO) 0.6 % (0-6); HEMOGLOBIN 9.5 g/dl (14.0-17.9); LYMPHOCYTES # (AUTO) 2.1 X10'3 (1.1-4.8); LYMPHOCYTES % (AUTO) 26.2 % (21-51); MEAN CORPUSCULAR HEMOGLOBIN 23.2 PG (27.0-31.0); MEAN CORPUSCULAR HGB CONC 30.7 g/dL (33.0-36.5); MEAN CORPUSCULAR VOLUME 75.5 FL (78-98); MEAN PLATELET VOLUME 7.6 FL (7.4-10.4); MONOCYTES # (AUTO) 0.8 X10'3 (0-0.9); MONOCYTES % (AUTO) 10.5 % (2-12); NEUTROPHILS % (AUTO) 61.8 % (42-75); PLATELET COUNT 286 X10'3 (140-440); RED BLOOD COUNT 4.11 X10'6 (4.70-6.10); RED CELL DISTRIBUTION WIDTH 20.8 % (11.5-14.5)
[2024-02-18 20:22] LABS: ALANINE AMINOTRANSFERASE 18 U/L (12-78); ALBUMIN 3.6 G/DL (3.4-5.0); ALBUMIN/GLOBULIN RATIO 0.8 (1.1-1.5); ALKALINE PHOSPHATASE 107 IU/L (46-116); ANION GAP 10 (8-16); ASPARTATE AMINO TRANSFERASE 25 U/L (10-37); BILIRUBIN,TOTAL 0.3 MG/DL (0.1-1.0); BLOOD UREA NITROGEN 16 MG/DL (7-18); BUN/CREATININE RATIO 11.9 (10.0-20.0); CALCIUM 8.9 MG/DL (8.5-10.1); CHLORIDE 99 MMOL/L (99-107); CREATININE 1.34 MG/DL (0.60-1.10); GLUCOSE 109 MG/DL (70-104); POTASSIUM 4.5 MMOL/L (3.5-5.1); SODIUM 136 MMOL/L (135-145); TOTAL CARBON DIOXIDE 26.7 MMOL/L (24-32); TOTAL PROTEIN 8.1 G/DL (6.4-8.2); eCRCL 54 ML/MIN; eGFR 55 ML/MIN
[2024-02-18 20:30] LABS: PRO BRAIN NATRIURETIC PEPTIDE 1960 PG/ML (0-125)
[2024-02-18 20:42] LABS: ANISOCYTOSIS 2+; HYPOCHROMASIA 1+; MICROCYTOSIS 1+; PLATELET ESTIMATE NORMAL
[2024-02-18] MEDS: aspirin 325mg tablet PO ONE (22:39)
[2024-02-18] MEDS: benzonatate 100mg capsule PO ONE (22:55)
[2024-02-18] MEDS: methylPREDNISolone sod succ 125mg/2ml vial IV ONE (23:02)
[2024-02-18 23:11] LABS: BILIRUBIN,URINE NEGATIVE (Neg); CLARITY,URINE CLEAR (Clear); COLOR,URINE YELLOW (Yellow); GLUCOSE, URINE NEGATIVE (Neg); KETONES,URINE NEGATIVE (Neg); LEUKOCYTE ESTERASE ,URINE NEGATIVE (Neg); NITRITES, URINE NEGATIVE (Neg); OCCULT BLOOD,URINE NEGATIVE (Neg); PROTEIN,URINE TRACE mg/dl (Neg); UROBILINOGEN,URINE 0.2 E.U/dL (0.2-1.0)
[2024-02-18] MEDS: acetaminophen 1,000mg/100ml IV 100 ML IV ONE (23:14)
[2024-02-18 23:19] LABS: UA COLLECTION TYPE CLN CATCH MIDSTREAM
[2024-02-18 23:23] LABS: BACTERIA,URINE FEW /HPF (Neg); RBC,URINE NONE SEEN /HPF (0-2); SPERM FEW /HPF (NEGATIVE); SQUAMOUS EPITHELIAL CELL,UR FEW /LPF (FEW); WBC,URINE 0-4 /HPF (0-4)
[2024-02-18 23:42] VITALS: PULSE 82; RESP 18; O2SAT 96
[2024-02-18] MEDS: ipratropium/albuterol 3ml nebule NEB ONE (23:44)
[2024-02-18 23:46] VITALS: PULSE 80; RESP 18; O2SAT 100
[2024-02-18] MEDS: amox tr/potassium clavulanate 875/125mg TAB PO ONE (23:55)
[2024-02-18] MEDS: azithromycin 250mg tablet PO ONE (23:55)
[2024-02-18] MEDS: ondansetron/PF 4mg/2ml inj IV ONE (23:55)
[2024-02-19] MEDS ORDERED: AZIT-103 PO (00:43)
[2024-02-19] MEDS ORDERED: PRED20TA PO (00:43)
[2024-02-19] MEDS ORDERED: AMOX-115 PO (00:43)
[2024-02-19 01:17] VITALS: RESP 17
[2024-02-19] MEDS: ketorolac trometh 15mg/ml vial 15 MG/ML ML IV ONE (01:17)
[2024-02-19 01:57] VITALS: BP 137/66; PULSE 75; TEMP 99.6; O2SAT 97
== END 2024-02-19 01:59 | disposition home or self-care (01) ==
LOC: ER 19:49
DX: R50.9 Fever, unspecified (principal); R05.8 Other specified cough; R06.02 Shortness of breath; F17.200 Nicotine dependence, unspecified, uncomplicated; I25.10 Atherosclerotic heart disease of native coronary artery without angina pectoris; I10 Essential (primary) hypertension; M19.90 Unspecified osteoarthritis, unspecified site; Z79.899 Other long term (current) drug therapy; Z72.89 Other problems related to lifestyle; Z98.890 Other specified postprocedural states; Z59.00 Homelessness unspecified; Z95.1 Presence of aortocoronary bypass graft; Z60.2 Problems related to living alone; Z20.822 Contact with and (suspected) exposure to COVID-19
CPT/HCPCS: 36415; 71045; 80053; 81001; 83880; 84145; 84484; 85008; 85025; 87502; 87503; 87811; 93005; 94640; 96365; 96375; 99285; J0131; J1885; J2405; J2919; 94760

== ENCOUNTER 2024-07-19 15:57 | Inpatient (IN) | payer MEDICAID ==
[~2024-07-19] VITALS: Ht 180.3 cm; Wt 69.2 kg
[~2024-07-19 15:57] MED LIST changes: +ASPI81TA52 PO; -ATOR20TA66 PO; -LISI20TA28 PO; -METO25TA6 PO
[2024-07-19 16:30] LABS: BILIRUBIN,URINE NEGATIVE (Neg); CLARITY,URINE SLIGHTLY CLOUDY (Clear); COLOR,URINE YELLOW (Yellow); GLUCOSE, URINE NEGATIVE (Neg); KETONES,URINE NEGATIVE (Neg); LEUKOCYTE ESTERASE ,URINE NEGATIVE (Neg); NITRITES, URINE NEGATIVE (Neg); OCCULT BLOOD,URINE NEGATIVE (Neg); PH,URINE 5.5 (4.8-8.0); PROTEIN,URINE 30 mg/dl (Neg); UROBILINOGEN,URINE 0.2 E.U/dL (0.2-1.0)
[2024-07-19 16:41] LABS: UA COLLECTION TYPE CLN CATCH MIDSTREAM
[2024-07-19 16:43] LABS: RBC,URINE NONE SEEN /HPF (0-2); WBC,URINE 0-4 /HPF (0-4)
[2024-07-19 16:43] LABS: BASOPHILS % (AUTO) 0.2 % (0-1); EOSINOPHILS # (AUTO) 0.1 X10'3 (0-0.9); EOSINOPHILS % (AUTO) 0.7 % (0-6); HEMATOCRIT 38.9 % (42.0-52.0); HEMOGLOBIN 13.1 g/dl (14.0-17.9); LYMPHOCYTES # (AUTO) 2.5 X10'3 (1.1-4.8); LYMPHOCYTES % (AUTO) 29.6 % (21-51); MEAN CORPUSCULAR HEMOGLOBIN 28.5 PG (27.0-31.0); MEAN CORPUSCULAR HGB CONC 33.6 g/dL (33.0-36.5); MEAN CORPUSCULAR VOLUME 84.7 FL (78-98); MEAN PLATELET VOLUME 7.6 FL (7.4-10.4); MONOCYTES # (AUTO) 1.4 X10'3 (0-0.9); MONOCYTES % (AUTO) 16.2 % (2-12); NEUTROPHILS # (AUTO) 4.5 X10'3 (1.8-7.7); NEUTROPHILS % (AUTO) 53.3 % (42-75); PLATELET COUNT 326 X10'3 (140-440); RED BLOOD COUNT 4.59 X10'6 (4.70-6.10); RED CELL DISTRIBUTION WIDTH 16.6 % (11.5-14.5); WHITE BLOOD COUNT 8.4 X10'3 (4.5-11.0)
[2024-07-19 16:44] LABS: AMORPHOUS URATES 4+; BACTERIA,URINE FEW /HPF (Neg); SQUAMOUS EPITHELIAL CELL,UR NONE SEEN /LPF (FEW)
[2024-07-19 16:46] LABS: SPERM FEW /HPF (NEGATIVE)
[2024-07-19] MEDS ORDERED: iohexol 300mg/ml 100ml inj. ONE (17:04)
[2024-07-19 17:10] LABS: ALANINE AMINOTRANSFERASE 19 U/L (12-78); ALBUMIN 2.9 G/DL (3.4-5.0); ALBUMIN/GLOBULIN RATIO 0.9 (1.1-1.5); ALKALINE PHOSPHATASE 81 IU/L (46-116); ANION GAP 9 (8-16); ASPARTATE AMINO TRANSFERASE 13 U/L (10-37); BILIRUBIN,TOTAL 0.3 MG/DL (0.1-1.0); BLOOD UREA NITROGEN 33 MG/DL (7-18); BUN/CREATININE RATIO 16.8 (10.0-20.0); CALCIUM 8.6 MG/DL (8.5-10.1); CHLORIDE 94 MMOL/L (99-107); CREATININE 1.96 MG/DL (0.60-1.10); GLUCOSE 115 MG/DL (70-104); LIPASE 21 U/L (16-77); POTASSIUM 3.8 MMOL/L (3.5-5.1); SODIUM 129 MMOL/L (135-145); TOTAL CARBON DIOXIDE 26.4 MMOL/L (24-32); eCRCL 40 ML/MIN; eGFR 35 ML/MIN
[2024-07-19 18:26] LABS: ANISOCYTOSIS 1+; PLATELET ESTIMATE NORMAL; TOTAL CELLS COUNTED 100
[2024-07-19 18:27] LABS: BURR CELLS 2+; ELLIPTOCYTES FEW
[2024-07-19] MEDS: normal saline 1000ml 1,000 ML IV ONE (18:27)
[2024-07-19] MEDS: ondansetron 4mg rapidly disintigrating tab PO ONE (18:27)
[2024-07-19] MEDS: morphine 4 MG/ML inj SYRINge IV ONE (19:22)
[2024-07-19] MEDS ORDERED: HYDR25TA4 PO (19:27)
[2024-07-19] MEDS ORDERED: FERR325T28 PO (19:28)
[2024-07-19] MEDS ORDERED: METO50TA7 PO (19:28)
[2024-07-19] MEDS ORDERED: magnesium sulf-water 2g/50mL 50 ML IV PRN (20:20)
[2024-07-19] MEDS ORDERED: magnesium hydroxide 30ml (MOM) UD suspension PO PRN (20:20)
[2024-07-19] MEDS ORDERED: acetaminophen 325mg tablet PO PRN (20:20)
[2024-07-19] MEDS ORDERED: potassium Cl 20 mEq SR tablet PO PRN (20:20)
[2024-07-19] MEDS ORDERED: potassium Cl 40MEQ/1/2NS 520ml 520 ML IV PRN (20:20)
[2024-07-19] MEDS ORDERED: mag hydrox/Alum hydrox/simeth 30ml oral suspension PO PRN (20:20)
[2024-07-19] MEDS ORDERED: ondansetron/PF 4mg/2ml inj IV PRN (20:20)
[2024-07-19] MEDS ORDERED: magnesium Cl slow-release 64mg tablet PO PRN (20:20)
[2024-07-19] MEDS ORDERED: magnesium sulf-water 4G/100mL 100 ML IV PRN (20:20)
[2024-07-19 20:50] VITALS: BP 103/59; PULSE 73; RESP 13; TEMP 97.8; O2SAT 96
[2024-07-19 20:51] LABS: LACTATE DEHYDROGENASE 219 U/L (85-227); PRO BRAIN NATRIURETIC PEPTIDE 849 PG/ML (0-125)
[2024-07-19 21:00] VITALS: RESP 16; O2SAT 98
[2024-07-19] MEDS: normal saline 1000ml 1,000 ML IV SCH (22:09)
[2024-07-19] MEDS: morphine 2 MG/ML inj. syringe IV PRN (22:17)
[2024-07-20 02:00] VITALS: BP 108/47; PULSE 65; RESP 12; TEMP 97.9; O2SAT 96
[2024-07-20 05:11] LABS: BASOPHILS % (AUTO) 0.6 % (0-1); EOSINOPHILS # (AUTO) 0.1 X10'3 (0-0.9); EOSINOPHILS % (AUTO) 1.5 % (0-6); HEMATOCRIT 32.8 % (42.0-52.0); HEMOGLOBIN 10.9 g/dl (14.0-17.9); LYMPHOCYTES # (AUTO) 2.1 X10'3 (1.1-4.8); LYMPHOCYTES % (AUTO) 30.7 % (21-51); MEAN CORPUSCULAR HEMOGLOBIN 28.3 PG (27.0-31.0); MEAN CORPUSCULAR HGB CONC 33.4 g/dL (33.0-36.5); MEAN CORPUSCULAR VOLUME 84.8 FL (78-98); MEAN PLATELET VOLUME 7.5 FL (7.4-10.4); MONOCYTES # (AUTO) 1.3 X10'3 (0-0.9); MONOCYTES % (AUTO) 19.6 % (2-12); NEUTROPHILS # (AUTO) 3.3 X10'3 (1.8-7.7); NEUTROPHILS % (AUTO) 47.6 % (42-75); PLATELET COUNT 235 X10'3 (140-440); RED BLOOD COUNT 3.87 X10'6 (4.70-6.10); RED CELL DISTRIBUTION WIDTH 17.1 % (11.5-14.5); WHITE BLOOD COUNT 6.8 X10'3 (4.5-11.0)
[2024-07-20 05:23] LABS: TOTAL CELLS COUNTED 100
[2024-07-20 05:26] LABS: ALANINE AMINOTRANSFERASE 12 U/L (12-78); ALBUMIN 2.3 G/DL (3.4-5.0); ALBUMIN/GLOBULIN RATIO 0.9 (1.1-1.5); ALKALINE PHOSPHATASE 60 IU/L (46-116); ANION GAP 5 (8-16); ASPARTATE AMINO TRANSFERASE 14 U/L (10-37); BILIRUBIN,TOTAL 0.3 MG/DL (0.1-1.0); BLOOD UREA NITROGEN 30 MG/DL (7-18); BUN/CREATININE RATIO 20.5 (10.0-20.0); CALCIUM 7.9 MG/DL (8.5-10.1); CHLORIDE 100 MMOL/L (99-107); CREATININE 1.46 MG/DL (0.60-1.10); GLUCOSE 83 MG/DL (70-104); MAGNESIUM 1.7 MG/DL (1.5-2.4); POTASSIUM 4.1 MMOL/L (3.5-5.1); SODIUM 132 MMOL/L (135-145); TOTAL CARBON DIOXIDE 27.3 MMOL/L (24-32); TOTAL PROTEIN 4.9 G/DL (6.4-8.2); eCRCL 53 ML/MIN; eGFR 49 ML/MIN
[2024-07-20 06:00] VITALS: BP 101/52; PULSE 69; RESP 13; TEMP 97.1; O2SAT 100
[2024-07-20] MEDS: docusate sod 100mg capsule PO SCH (06:55)
[2024-07-20] MEDS: K and/or MAG REPLACEMENT MC SCH (07:46)
[2024-07-20 08:00] VITALS: RESP 13; O2SAT 100
[2024-07-20 09:45] LABS: C DIFF ANTIGEN POSITIVE (NEGATIVE); C DIFF SPECIMEN=DIARRHEA? ACCEPTABLE; C DIFFICILE TOXINS A&B POSITIVE (Neg)
[2024-07-20 10:00] VITALS: BP 112/61; PULSE 73; RESP 16; TEMP 98.3; O2SAT 97
[2024-07-20] MEDS: vancomycin 125 MG/5 ML UD oral SOLN.RECON 5mL oral syringe (FIRVANQ) PO SCH (14:02)
[2024-07-20] MEDS: aspirin 81mg, enteric-coated 1 TAB TABLET.DR PO ONE (15:12)
[2024-07-20 18:00] VITALS: BP 102/54; PULSE 65; RESP 18; TEMP 99.1; O2SAT 98
[2024-07-20] MEDS ORDERED: heparin, porcine 5000 units/ml vial SQ SCH (20:00)
[2024-07-20] MEDS: apixaban 5mg tablet PO SCH (20:31)
[2024-07-20] MEDS: atorvastatin 20mg tablet PO SCH (20:31)
[2024-07-20 22:00] VITALS: BP 107/55; PULSE 87; RESP 16; TEMP 99; O2SAT 97
[2024-07-21 04:54] LABS: BASOPHILS % (AUTO) 0.4 % (0-1); EOSINOPHILS # (AUTO) 0.1 X10'3 (0-0.9); EOSINOPHILS % (AUTO) 1.7 % (0-6); HEMATOCRIT 32.2 % (42.0-52.0); HEMOGLOBIN 10.9 g/dl (14.0-17.9); LYMPHOCYTES # (AUTO) 1.7 X10'3 (1.1-4.8); LYMPHOCYTES % (AUTO) 28.7 % (21-51); MEAN CORPUSCULAR HEMOGLOBIN 28.6 PG (27.0-31.0); MEAN CORPUSCULAR HGB CONC 33.8 g/dL (33.0-36.5); MEAN CORPUSCULAR VOLUME 84.7 FL (78-98); MEAN PLATELET VOLUME 7.3 FL (7.4-10.4); MONOCYTES # (AUTO) 1.1 X10'3 (0-0.9); MONOCYTES % (AUTO) 19.4 % (2-12); NEUTROPHILS # (AUTO) 2.9 X10'3 (1.8-7.7); NEUTROPHILS % (AUTO) 49.8 % (42-75); PLATELET COUNT 235 X10'3 (140-440); RED CELL DISTRIBUTION WIDTH 17.2 % (11.5-14.5); WHITE BLOOD COUNT 5.9 X10'3 (4.5-11.0)
[2024-07-21 05:08] LABS: ALANINE AMINOTRANSFERASE 14 U/L (12-78); ALBUMIN/GLOBULIN RATIO 0.8 (1.1-1.5); ALKALINE PHOSPHATASE 56 IU/L (46-116); ANION GAP 4 (8-16); ASPARTATE AMINO TRANSFERASE 12 U/L (10-37); BILIRUBIN,TOTAL 0.3 MG/DL (0.1-1.0); BLOOD UREA NITROGEN 14 MG/DL (7-18); BUN/CREATININE RATIO 13.6 (10.0-20.0); CALCIUM 7.6 MG/DL (8.5-10.1); CHLORIDE 103 MMOL/L (99-107); CREATININE 1.03 MG/DL (0.60-1.10); GLUCOSE 73 MG/DL (70-104); MAGNESIUM 1.5 MG/DL (1.5-2.4); POTASSIUM 3.7 MMOL/L (3.5-5.1); SODIUM 134 MMOL/L (135-145); TOTAL CARBON DIOXIDE 27.3 MMOL/L (24-32); TOTAL PROTEIN 4.4 G/DL (6.4-8.2); eCRCL 76 ML/MIN; eGFR 74 ML/MIN
[2024-07-21 05:09] LABS: TOTAL CELLS COUNTED 100
[2024-07-21 06:00] VITALS: BP 105/57; PULSE 73; RESP 16; TEMP 98.6; O2SAT 100
[2024-07-21] MEDS: aspirin 81mg, enteric-coated 1 TAB TABLET.DR PO SCH (07:44)
[2024-07-21 08:00] VITALS: RESP 16; O2SAT 100
[2024-07-21 10:00] VITALS: BP 123/58; PULSE 70; RESP 19; TEMP 98.1; O2SAT 96
[2024-07-21] MEDS ORDERED: iohexol 350MG/ML 100ml bottle IV ONE (14:42)
[2024-07-21] MEDS ORDERED: iohexol 350 MG/ML 50ML vial IV ONE (14:42)
[2024-07-21 17:26] VITALS: BP 117/78; PULSE 79; RESP 17; TEMP 98.4; O2SAT 97
[2024-07-21 22:00] VITALS: BP 101/48; PULSE 76; RESP 16; TEMP 98.3; O2SAT 96
[2024-07-22 04:15] LABS: BASOPHILS % (AUTO) 0.4 % (0-1); EOSINOPHILS # (AUTO) 0.1 X10'3 (0-0.9); EOSINOPHILS % (AUTO) 1.6 % (0-6); HEMATOCRIT 30.8 % (42.0-52.0); HEMOGLOBIN 10.6 g/dl (14.0-17.9); LYMPHOCYTES # (AUTO) 1.8 X10'3 (1.1-4.8); LYMPHOCYTES % (AUTO) 29.5 % (21-51); MEAN CORPUSCULAR HEMOGLOBIN 28.8 PG (27.0-31.0); MEAN CORPUSCULAR HGB CONC 34.3 g/dL (33.0-36.5); MEAN PLATELET VOLUME 7.4 FL (7.4-10.4); MONOCYTES % (AUTO) 17.2 % (2-12); NEUTROPHILS % (AUTO) 51.3 % (42-75); PLATELET COUNT 232 X10'3 (140-440); RED BLOOD COUNT 3.67 X10'6 (4.70-6.10); RED CELL DISTRIBUTION WIDTH 16.8 % (11.5-14.5); WHITE BLOOD COUNT 5.9 X10'3 (4.5-11.0)
[2024-07-22 04:26] LABS: ALANINE AMINOTRANSFERASE 14 U/L (12-78); ALBUMIN 1.9 G/DL (3.4-5.0); ALBUMIN/GLOBULIN RATIO 0.9 (1.1-1.5); ALKALINE PHOSPHATASE 59 IU/L (46-116); ANION GAP 5 (8-16); ASPARTATE AMINO TRANSFERASE 8 U/L (10-37); BILIRUBIN,TOTAL 0.3 MG/DL (0.1-1.0); BLOOD UREA NITROGEN 6 MG/DL (7-18); BUN/CREATININE RATIO 6.7 (10.0-20.0); CALCIUM 7.1 MG/DL (8.5-10.1); CHLORIDE 107 MMOL/L (99-107); GLUCOSE 71 MG/DL (70-104); MAGNESIUM 1.4 MG/DL (1.5-2.4); POTASSIUM 3.1 MMOL/L (3.5-5.1); SODIUM 136 MMOL/L (135-145); TOTAL CARBON DIOXIDE 24.3 MMOL/L (24-32); TOTAL PROTEIN 4.1 G/DL (6.4-8.2); eCRCL 87 ML/MIN; eGFR 86 ML/MIN
[2024-07-22 06:00] VITALS: BP 107/52; PULSE 83; RESP 19; TEMP 98.2; O2SAT 96
[2024-07-22 10:00] VITALS: BP 105/57; PULSE 77; RESP 20; TEMP 98.4; O2SAT 96
[2024-07-22] MEDS: potassium Cl 20 mEq SR tablet PO PRN ×2 (10:34→20:46)
[2024-07-22 14:51] VITALS: RESP 20; O2SAT 96
[2024-07-22 18:00] VITALS: BP 118/61; PULSE 65; RESP 19; TEMP 98; O2SAT 98
[2024-07-22 20:00] VITALS: RESP 19; O2SAT 98
[2024-07-22] MEDS ORDERED: magnesium sulf-water 4G/100mL 100 ML IV PRN (20:30)
[2024-07-22] MEDS ORDERED: potassium Cl 40MEQ/1/2NS 520ml 520 ML IV PRN (20:30)
[2024-07-22] MEDS ORDERED: magnesium sulf-water 2g/50mL 50 ML IV PRN (20:30)
[2024-07-22] MEDS ORDERED: potassium Cl 20 mEq SR tablet PO PRN (20:30)
[2024-07-22] MEDS: magnesium Cl slow-release 64mg tablet PO PRN (20:46)
[2024-07-22 22:00] VITALS: BP 116/62; PULSE 61; RESP 16; TEMP 98; O2SAT 99
[2024-07-23 04:59] LABS: BASOPHILS % (AUTO) 0.5 % (0-1); EOSINOPHILS # (AUTO) 0.1 X10'3 (0-0.9); EOSINOPHILS % (AUTO) 1.5 % (0-6); HEMATOCRIT 35.9 % (42.0-52.0); LYMPHOCYTES # (AUTO) 2.6 X10'3 (1.1-4.8); LYMPHOCYTES % (AUTO) 33.8 % (21-51); MEAN CORPUSCULAR HEMOGLOBIN 28.5 PG (27.0-31.0); MEAN CORPUSCULAR HGB CONC 33.4 g/dL (33.0-36.5); MEAN CORPUSCULAR VOLUME 85.4 FL (78-98); MEAN PLATELET VOLUME 7.3 FL (7.4-10.4); MONOCYTES % (AUTO) 12.4 % (2-12); NEUTROPHILS % (AUTO) 51.8 % (42-75); PLATELET COUNT 261 X10'3 (140-440); RED BLOOD COUNT 4.21 X10'6 (4.70-6.10); RED CELL DISTRIBUTION WIDTH 16.7 % (11.5-14.5); WHITE BLOOD COUNT 7.7 X10'3 (4.5-11.0)
[2024-07-23 05:16] LABS: ALANINE AMINOTRANSFERASE 17 U/L (12-78); ALBUMIN/GLOBULIN RATIO 0.8 (1.1-1.5); ALKALINE PHOSPHATASE 68 IU/L (46-116); ANION GAP 5 (8-16); ASPARTATE AMINO TRANSFERASE 17 U/L (10-37); BILIRUBIN,TOTAL 0.4 MG/DL (0.1-1.0); BLOOD UREA NITROGEN 3 MG/DL (7-18); BUN/CREATININE RATIO 3.3 (10.0-20.0); CALCIUM 7.4 MG/DL (8.5-10.1); CHLORIDE 107 MMOL/L (99-107); CREATININE 0.92 MG/DL (0.60-1.10); GLUCOSE 70 MG/DL (70-104); MAGNESIUM 1.5 MG/DL (1.5-2.4); POTASSIUM 3.9 MMOL/L (3.5-5.1); SODIUM 138 MMOL/L (135-145); TOTAL CARBON DIOXIDE 25.7 MMOL/L (24-32); TOTAL PROTEIN 4.5 G/DL (6.4-8.2); eCRCL 85 ML/MIN; eGFR 84 ML/MIN
[2024-07-23 06:00] VITALS: BP 122/71; PULSE 66; RESP 16; TEMP 97.9; O2SAT 99
[2024-07-23] MEDS: K and/or MAG REPLACEMENT MC SCH (06:49)
[2024-07-23 07:30] VITALS: RESP 16
[2024-07-23 10:00] VITALS: BP 130/68; PULSE 70; RESP 20; TEMP 98.4; O2SAT 100
[2024-07-23] MEDS ORDERED: METO-395 PO (12:25)
[2024-07-23] MEDS ORDERED: VANC1VIA38 IV (12:25)
[2024-07-23] MEDS: NUT.TX.IMPAIRED DIGEST FXN (Ensure Clear) 237 ML PO SCH (13:00)
== END 2024-07-23 17:05 | disposition home or self-care (01) | DRG 248 ==
LOC: ER 15:58 → ED HOLD 19:27 → SUR 3N 20:47
PROVIDERS: ADMIT Internal Medicine Critical Care Medicine; ATTEND Nurse Practitioner Family
PROC: B4201ZZ Computerized Tomography (CT Scan) of Abdominal Aorta using Low Osmolar Contrast (ICD-10-PCS; principal; 2024-07-21)
PROC: B4241ZZ Computerized Tomography (CT Scan) of Superior Mesenteric Artery using Low Osmolar Contrast (ICD-10-PCS; 2024-07-21)
PROC: B4281ZZ Computerized Tomography (CT Scan) of Bilateral Renal Arteries using Low Osmolar Contrast (ICD-10-PCS; 2024-07-21)
PROC: B42C1ZZ Computerized Tomography (CT Scan) of Pelvic Arteries using Low Osmolar Contrast (ICD-10-PCS; 2024-07-21)
PROC: B42H1ZZ Computerized Tomography (CT Scan) of Bilateral Lower Extremity Arteries using Low Osmolar Contrast (ICD-10-PCS; 2024-07-21)
PROC: B4211ZZ Computerized Tomography (CT Scan) of Celiac Artery using Low Osmolar Contrast (ICD-10-PCS; 2024-07-21)
PROC: B42H1ZZ Computerized Tomography (CT Scan) of Bilateral Lower Extremity Arteries using Low Osmolar Contrast (ICD-10-PCS; 2024-07-21)
DX: A04.72 Enterocolitis due to Clostridium difficile, not specified as recurrent (principal); N17.0 Acute kidney failure with tubular necrosis; K55.1 Chronic vascular disorders of intestine; E87.1 Hypo-osmolality and hyponatremia; I10 Essential (primary) hypertension; I25.10 Atherosclerotic heart disease of native coronary artery without angina pectoris; J44.9 Chronic obstructive pulmonary disease, unspecified; I48.91 Unspecified atrial fibrillation; I73.9 Peripheral vascular disease, unspecified; I25.2 Old myocardial infarction; Z79.01 Long term (current) use of anticoagulants; Z79.82 Long term (current) use of aspirin; Z79.899 Other long term (current) drug therapy; Z95.1 Presence of aortocoronary bypass graft; Z86.73 Personal history of transient ischemic attack (TIA), and cerebral infarction without residual deficits; Z87.891 Personal history of nicotine dependence; Z95.2 Presence of prosthetic heart valve; Z59.00 Homelessness unspecified
CPT/HCPCS: 36415; 74176; 75635; 80053; 81001; 83605; 83615; 83690; 83735; 83880; 84145; 85007; 85025; 85651; 87045; 87046; 87081; 87324; 87449; 89055; 93922; 93925; 99285; G0378; J2270; J7030; Q9967